=== PATIENT | female | born 1940 | race Caucasian/White ===

== ENCOUNTER 2017-11-27 07:59 | Emergency (ER) | payer MEDICARE, OTHER ==
--- NOTE | 2017-11-27 08:49 | EDM.PDOC ---
ED HPI GENERAL MEDICAL PROBLEM - General Chief Complaint: General Stated Complaint: weakness, increased falls Time Seen by Provider: 11/27/17 08:10 Source of Information: Reports: Patient History Limitations: Reports: No Limitations - History of Present Illness INITIAL COMMENTS - FREE TEXT/NARRATIVE: Patient is a 77-year-old who lives in [facility] brought in by ambulance with chief complaint of weakness patient states she has fallen 4 times yesterday. Duration: Hour(s):, Getting Worse Location: Reports: Generalized Associated Symptoms: Reports: Weakness, Other (Patient was recently treated for strep throat) - Related Data Allergies Allergy/AdvReac Type Severity Reaction Status Date / Time Penicillins Allergy Swelling Verified 11/27/17 08:19 Sulfa (Sulfonamide Allergy Redness Verified 11/27/17 08:19 Antibiotics) tramadol Allergy Delusions Verified 11/27/17 08:19 Home Meds: Home Meds Aspirin [Lo-Dose Aspirin EC] 81 mg PO DAILY 11/27/17 [History] Calcium Carbonate [Calcium] 500 mg PO DAILY 11/27/17 [History] Citalopram [Citalopram HBr] 20 mg PO DAILY 11/27/17 [History] Clopidogrel [Plavix] 75 mg PO DAILY 11/27/17 [History] Cyclobenzaprine [Flexeril] 10 mg PO BEDTIME PRN 11/27/17 [History] Donepezil [Aricept] 5 mg PO BEDTIME 11/27/17 [History] Esomeprazole Magnesium 20 mg PO DAILY 11/27/17 [History] Furosemide 20 mg PO DAILY 11/27/17 [History] Levothyroxine 125 mcg PO DAILY 11/27/17 [History] Lisinopril 20 mg PO BID 11/27/17 [History] Mercaptopurine 50 mg PO DAILY 11/27/17 [History] Metoprolol Succinate [Toprol Xl] 25 mg PO DAILY 11/27/17 [History] NIFEdipine [Procardia Xl] 60 mg PO DAILY 11/27/17 [History] Potassium Chloride 2 cap PO TID 11/27/17 [History] Solifenacin [Vesicare] 10 mg PO DAILY 11/27/17 [History] Triamcinolone Acetonide [Triamcinolone Acetonide 0.1% Crm] 1 applic TOP BID PRN 11/27/17 [History] Vitamin D 500 mg PO DAILY 11/27/17 [History] atorvaSTATin [Lipitor] 20 mg PO QPM 11/27/17 [History] ED ROS GENERAL - Review of Systems Review Of Systems: See Below Constitutional: Reports: Weakness HEENT: Reports: Throat Pain Respiratory: Reports: No Symptoms Cardiovascular: Reports: No Symptoms Endocrine: Reports: No Symptoms GI/Abdominal: Reports: No Symptoms : Reports: No Symptoms Musculoskeletal: Reports: No Symptoms Skin: Reports: No Symptoms Neurological: Reports: No Symptoms Psychiatric: Reports: No Symptoms ED EXAM, GENERAL - Physical Exam Exam: See Below Exam Limited By: No Limitations General Appearance: Alert, WD/WN, No Apparent Distress Eye Exam: Bilateral Eye: EOMI, PERRL Ears: Normal External Exam, Normal Canal, Hearing Grossly Normal, Normal TMs Ear Exam: Bilateral Ear: Auricle Normal, Canal Normal, TM normal Nose: Normal Inspection, Normal Mucosa, No Blood Throat/Mouth: Normal Inspection, Normal Lips, Normal Teeth, Normal Gums, Normal Oropharynx, Normal Voice, No Airway Compromise Head: Atraumatic, Normocephalic Neck: Normal Inspection, Supple, Non-Tender, Full Range of Motion Respiratory/Chest: No Respiratory Distress, Lungs Clear, Normal Breath Sounds, No Accessory Muscle Use, Chest Non-Tender Cardiovascular: Normal Peripheral Pulses, Regular Rate, Rhythm, No Edema, No Gallop, No JVD, No Murmur, No Rub GI/Abdominal: Normal Bowel Sounds, Soft, Non-Tender, No Organomegaly, No Distention, No Abnormal Bruit, No Mass (Female) Exam: Deferred Rectal (Female) Exam: Deferred Back Exam: Normal Inspection, Full Range of Motion, NT Extremities: Normal Inspection, Normal Range of Motion, Non-Tender, Normal Capillary Refill, No Pedal Edema Neurological: Alert, Oriented, CN II-XII Intact, Normal Cognition, Normal Gait, Normal Reflexes, No Motor/Sensory Deficits Psychiatric: Normal Affect, Normal Mood Skin Exam: Warm, Dry, Intact, Normal Color, No Rash Lymphatic: No Adenopathy Course - Vital Signs Last Recorded V/S: Last Vital Signs Temp 97.6 F 11/27/17 08:15 Pulse 51 L 11/27/17 08:15 Resp 16 11/27/17 08:15 BP 127/46 L 11/27/17 08:15 Pulse Ox 97 11/27/17 08:15 - Orders/Labs/Meds Orders: Active Orders 24 hr Category Date Time Status EKG Documentation Completion [RC] ASDIRECTED Care 11/27/17 08:46 Active CXR [Chest 2V] [CR] Stat Exams 11/27/17 08:45 Taken Sodium Chloride 0.9% [Normal Saline] 1,000 ml Med 11/27/17 09:49 Active IV ASDIRECTED Medication Orders Sodium Chloride (Normal Saline) 1,000 mls @ 250 mls/hr IV ASDIRECTED RACHEL Last Admin: 11/27/17 09:53 Dose: 250 mls/hr Labs: Laboratory Tests 11/27/17 11/27/17 11/27/17 Range/Units 09:00 09:00 09:00 WBC 6.9 (4.0-10.2) K/uL RBC 3.31 L (3.77-5.09) M/uL Hgb 11.1 L (11.7-15.5) g/dL Hct 32.3 L (34.0-46.0) % MCV 97.6 (84.0-98.0) fL MCH 33.5 H (28.2-33.3) pg MCHC 34.4 (31.7-36.0) g/dL RDW 14.6 H (11.2-14.1) % Plt Count 239 (150-350) K/uL Neut % (Auto) 69.6 (45.0-80.0) % Lymph % (Auto) 14.8 (10.0-50.0) % [place] % (Auto) 10.7 (2.0-14.0) % Eos % (Auto) 3.9 (0.0-5.0) % Baso % (Auto) 1.0 (0.0-2.0) % Neut # (Auto) 4.79 (1.40-7.00) K/uL Lymph # (Auto) 1.02 (0.50-3.50) K/uL [place] # (Auto) 0.74 (0.00-1.00) K/uL Eos # (Auto) 0.27 (0.00-0.50) K/uL Baso # (Auto) 0.07 (0.00-0.20) K/uL Sodium 140 (136-145) mmol/L Potassium 5.1 (3.5-5.1) mmol/L Chloride 106 (98-107) mmol/L Carbon Dioxide 24.3 (21.0-32.0) mmol/L BUN 38 H (7-18) mg/dL Creatinine 1.75 H (0.51-1.17) mg/dL Est Cr Clr Drug Dosing 18.72 mL/min Estimated GFR (MDRD) 28 mL/min Glucose 159 H (74-106) mg/dL Calcium 9.6 (8.5-10.1) mg/dL Troponin I 0.000 (0.000-0.056) ng/mL Meds: Medications Generic Name Dose Route Start Last Admin Trade Name Freq PRN Reason Stop Dose Admin Sodium Chloride 1,000 mls @ 250 mls/hr 11/27/17 09:49 11/27/17 09:53 Normal Saline IV 250 mls/hr ASDIRECTED RACHEL Administration Discontinued Medications Generic Name Dose Route Start Last Admin Trade Name Freq PRN Reason Stop Dose Admin Aspirin 324 mg 11/27/17 12:36 11/27/17 12:38 Aspirin PO 11/27/17 12:37 324 mg ONETIME ONE Administration Departure - Departure Time of Disposition: 13:14 Disposition: Home, Self-Care 01 Condition: Good Clinical Impression: Dehydration, Weakness - Discharge Information Forms: ED Department Discharge Care Plan Goals: Discharge home after fluids given IV - My Orders Last 24 Hours: My Active Orders 11/27/17 08:45 CXR [Chest 2V] [CR] Stat 11/27/17 08:46 EKG Documentation Completion [RC] ASDIRECTED 11/27/17 09:49 Sodium Chloride 0.9% [Normal Saline] 1,000 ml IV ASDIRECTED - Assessment/Plan Last 24 Hours: My Active Orders 11/27/17 08:45 CXR [Chest 2V] [CR] Stat 11/27/17 08:46 EKG Documentation Completion [RC] ASDIRECTED 11/27/17 09:49 Sodium Chloride 0.9% [Normal Saline] 1,000 ml IV ASDIRECTED
[2017-11-27] MEDS ORDERED: Sodium Chloride 0.9% 1,000 ML IV SCH (09:49)
[2017-11-27] MEDS ORDERED: Aspirin 81 MG Tab.Chew PO ONE (12:36)
== END 2017-11-27 14:30 | disposition home or self-care (01) ==
LOC: LL.ED 07:59
DX: E86.0 Dehydration (principal); R53.1 Weakness; Z88.0 Allergy status to penicillin; Z88.2 Allergy status to sulfonamides; Z88.6 Allergy status to analgesic agent; Z79.82 Long term (current) use of aspirin; Z79.899 Other long term (current) drug therapy
CPT/HCPCS: 36415; 71046; 80048; 84484; 85025; 87804; 93005; 96360; 96361; 99285; A9270; J7030; 99284

== ENCOUNTER 2017-11-28 15:07 | Inpatient (IN) | payer MEDICARE, OTHER ==
[2017-11-28] MEDS ORDERED: Sodium Chloride 0.9% 10 ML Syringe FLUSH PRN (15:11)
--- NOTE | 2017-11-28 16:00 | EDM.PDOC ---
ED HPI GENERAL MEDICAL PROBLEM - General Chief Complaint: General Stated Complaint: leg weakness Time Seen by Provider: 11/28/17 15:15 Source of Information: Reports: Patient History Limitations: Reports: No Limitations - History of Present Illness INITIAL COMMENTS - FREE TEXT/NARRATIVE: Patient is a 77-year-old who is seen today with chief complaint of generalized weakness states that she couldn't get up from bed today denies falling Onset: Gradual Duration: Hour(s): Location: Reports: Lower Extremity, Left, Lower Extremity, Right, Generalized ( Weakness) Quality: Reports: Ache Severity: Moderate Improves with: Reports: None Worsens with: Reports: Other (Ambulation) Context: Reports: Activity Associated Symptoms: Reports: Weakness - Related Data Allergies Allergy/AdvReac Type Severity Reaction Status Date / Time Penicillins Allergy Swelling Verified 11/28/17 15:39 Sulfa (Sulfonamide Allergy Redness Verified 11/28/17 15:39 Antibiotics) tramadol Allergy Delusions Verified 11/28/17 15:39 Home Meds: Home Meds Aspirin [Lo-Dose Aspirin EC] 81 mg PO DAILY 11/27/17 [History] Calcium Carbonate [Calcium] 500 mg PO DAILY 11/27/17 [History] Citalopram [Citalopram HBr] 20 mg PO DAILY 11/27/17 [History] Clopidogrel [Plavix] 75 mg PO DAILY 11/27/17 [History] Cyclobenzaprine [Flexeril] 10 mg PO BEDTIME PRN 11/27/17 [History] Donepezil [Aricept] 5 mg PO BEDTIME 11/27/17 [History] Esomeprazole Magnesium 20 mg PO DAILY 11/27/17 [History] Furosemide 20 mg PO DAILY 11/27/17 [History] Levothyroxine 125 mcg PO DAILY 11/27/17 [History] Lisinopril 20 mg PO BID 11/27/17 [History] Mercaptopurine 50 mg PO DAILY 11/27/17 [History] Metoprolol Succinate [Toprol Xl] 25 mg PO DAILY 11/27/17 [History] NIFEdipine [Procardia Xl] 60 mg PO DAILY 11/27/17 [History] Potassium Chloride 2 cap PO TID 11/27/17 [History] Solifenacin [Vesicare] 10 mg PO DAILY 11/27/17 [History] Triamcinolone Acetonide [Triamcinolone Acetonide 0.1% Crm] 1 applic TOP BID PRN 11/27/17 [History] Vitamin D 500 mg PO DAILY 11/27/17 [History] atorvaSTATin [Lipitor] 20 mg PO QPM 11/27/17 [History] Past Medical History HEENT History: Reports: Allergic Rhinitis, Hard of Hearing, Impaired Vision Cardiovascular History: Reports: CAD, High Cholesterol, Hypertension Respiratory History: Reports: Asthma Gastrointestinal History: Reports: Colon Polyp, Diverticulosis, Hepatitis, PUD Genitourinary History: Reports: Urinary Incontinence, Other (See Below) Other Genitourinary History: stress incontinence Musculoskeletal History: Reports: Back Pain, Chronic, Other (See Below) Other Musculoskeletal History: osteopenia, 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 Degenerative disk disease Neurological History: Reports: Neuropathy, Diabetic, Seizure, TIA, Other (See Below) Other Neuro History: mild cognitive impairment. auditory seizure Psychiatric History: Reports: Depression Endocrine/Metabolic History: Reports: Diabetes, Type II, Hypothyroidism Dermatologic History: Reports: Psoriasis, Other (See Below) Other Dermatologic History: inflammed seborrheic keratosis. actinic keratosis - Past Surgical History HEENT Surgical History: Reports: Cataract Surgery Cardiovascular Surgical History: Reports: Coronary Artery Bypass, Coronary Artery Stent Social & Family History - Tobacco Use Smoking Status *Q: Unknown Ever Smoked ED ROS GENERAL - Review of Systems Review Of Systems: See Below Constitutional: Reports: No Symptoms HEENT: Reports: No Symptoms Respiratory: Reports: No Symptoms Cardiovascular: Reports: No Symptoms Endocrine: Reports: No Symptoms GI/Abdominal: Reports: No Symptoms : Reports: No Symptoms Musculoskeletal: Reports: No Symptoms Skin: Reports: No Symptoms Neurological: Reports: Weakness Psychiatric: Reports: No Symptoms Immunologic: Reports: No Symptoms ED EXAM, GENERAL - Physical Exam Exam: See Below Exam Limited By: No Limitations General Appearance: Alert, WD/WN, No Apparent Distress Ears: Normal External Exam, Normal Canal, Hearing Grossly Normal, Normal TMs Ear Exam: Bilateral Ear: Auricle Normal, Canal Normal, TM normal Nose: Normal Inspection, Normal Mucosa, No Blood Throat/Mouth: Normal Inspection, Normal Lips, Normal Teeth, Normal Gums, Normal Oropharynx, Normal Voice, No Airway Compromise Head: Atraumatic, Normocephalic Neck: Normal Inspection, Supple, Non-Tender, Full Range of Motion Respiratory/Chest: No Respiratory Distress, Lungs Clear, Normal Breath Sounds, No Accessory Muscle Use, Chest Non-Tender Cardiovascular: Normal Peripheral Pulses, Regular Rate, Rhythm, No Edema, No Gallop, No JVD, No Murmur, No Rub GI/Abdominal: Normal Bowel Sounds, Soft, Non-Tender, No Organomegaly, No Distention, No Abnormal Bruit, No Mass (Female) Exam: Normal External Exam, Normal Speculum Exam, Normal Bimanual Exam Rectal (Female) Exam: Deferred Back Exam: Decreased Range of Motion, Muscle Spasm, Other (Lower back) Extremities: Normal Inspection, Normal Range of Motion, Non-Tender, Normal Capillary Refill, No Pedal Edema Neurological: Alert, Oriented, CN II-XII Intact, Normal Cognition, Normal Gait, Normal Reflexes, No Motor/Sensory Deficits, Sensory/Motor Deficit, Other ( Peripheral neuropathy) Psychiatric: Normal Affect, Normal Mood Skin Exam: Warm, Dry, Intact, Normal Color, No Rash Lymphatic: No Adenopathy Course - Vital Signs Last Recorded V/S: Last Vital Signs Temp 98.2 F 11/28/17 15:32 Pulse 54 L 11/28/17 15:32 Resp 16 11/28/17 15:32 BP 172/55 H 11/28/17 15:32 Pulse Ox 100 11/28/17 15:32 - Orders/Labs/Meds Orders: Active Orders 24 hr Category Date Time Status CMP [COMPREHENSIVE METABOLIC PN,CMP] [CHEM] Stat Lab 11/28/17 15:17 Received TSH ULTRASENSITIVE [CHEM] Stat Lab 11/28/17 15:17 Received Sodium Chloride 0.9% [Saline Flush] Med 11/28/17 15:11 Active 10 ml FLUSH ASDIRECTED PRN Saline Lock Insert [OM.PC] Routine Oth 11/28/17 15:11 Ordered Medication Orders Sodium Chloride (Saline Flush) 10 ml FLUSH ASDIRECTED PRN PRN Reason: Keep Vein Open Labs: Laboratory Tests 11/28/17 Range/Units 15:17 WBC 6.0 (4.0-10.2) K/uL RBC 2.93 L (3.77-5.09) M/uL Hgb 9.7 L (11.7-15.5) g/dL Hct 28.3 L (34.0-46.0) % MCV 96.6 (84.0-98.0) fL MCH 33.1 (28.2-33.3) pg MCHC 34.3 (31.7-36.0) g/dL RDW 14.2 H (11.2-14.1) % Plt Count 193 (150-350) K/uL Neut % (Auto) 67.2 (45.0-80.0) % Lymph % (Auto) 16.1 (10.0-50.0) % [place] % (Auto) 11.9 (2.0-14.0) % Eos % (Auto) 4.0 (0.0-5.0) % Baso % (Auto) 0.8 (0.0-2.0) % Neut # (Auto) 3.99 (1.40-7.00) K/uL Lymph # (Auto) 0.96 (0.50-3.50) K/uL [place] # (Auto) 0.71 (0.00-1.00) K/uL Eos # (Auto) 0.24 (0.00-0.50) K/uL Baso # (Auto) 0.05 (0.00-0.20) K/uL Meds: Medications Generic Name Dose Route Start Last Admin Trade Name Freq PRN Reason Stop Dose Admin Sodium Chloride 10 ml 11/28/17 15:11 Saline Flush FLUSH ASDIRECTED PRN Keep Vein Open Departure - Departure Time of Disposition: 16:04 Disposition: Admitted As Inpatient 64 Condition: Fair Clinical Impression: Dehydration, Weakness - Discharge Information - Problem List & Annotations (1) Dehydration SNOMED Code(s): 97431686 Code(s): E86.0 - DEHYDRATION Status: Acute Annotation/Comment:: Patient denies any emesis or diarrhea has not been drinking well in the past 24 hours (2) Weakness SNOMED Code(s): 29671292 Code(s): R53.1 - WEAKNESS Status: Acute Annotation/Comment:: Patient complains of generalized weakness difficult to get up from bed she has not fallen today was brought in because of generalized weakness - Problem List Review Problem List Initiated/Reviewed/Updated: Yes - My Orders Last 24 Hours: My Active Orders 11/28/17 15:11 Sodium Chloride 0.9% [Saline Flush] 10 ml FLUSH ASDIRECTED PRN Saline Lock Insert [OM.PC] Routine 11/28/17 15:17 CMP [COMPREHENSIVE METABOLIC PN,CMP] [CHEM] Stat TSH ULTRASENSITIVE [CHEM] Stat - Assessment/Plan Last 24 Hours: My Active Orders 11/28/17 15:11 Sodium Chloride 0.9% [Saline Flush] 10 ml FLUSH ASDIRECTED PRN Saline Lock Insert [OM.PC] Routine 11/28/17 15:17 CMP [COMPREHENSIVE METABOLIC PN,CMP] [CHEM] Stat TSH ULTRASENSITIVE [CHEM] Stat Plan: Will admit patient for hydration and physical therapy also importance as the patient has not been taking her thyroid medication for while.
[2017-11-28] MEDS: Dextrose 5%-0.9% NaCl with KCl 1,000 ML IV SCH ×2 (16:01→23:40)
[2017-11-29] MEDS ORDERED: Acetaminophen 500 MG Tab PO PRN (00:24)
[2017-11-29] MEDS ORDERED: Cyclobenzaprine 10 MG Tab PO PRN (00:28)
[2017-11-29] MEDS: Dextrose 5%-0.9% NaCl with KCl 1,000 ML IV SCH ×3 (07:27→22:59)
[2017-11-29] MEDS ORDERED: ESOMEPRAZOLE MAGNESIUM 20 MG PO SCH (08:00)
[2017-11-29] MEDS ORDERED: VITAMIN D PO SCH (08:00)
[2017-11-29] MEDS ORDERED: MERCAPTOPURINE 50 MG PO SCH (08:00)
[2017-11-29] MEDS: Metoprolol Succinate 25 MG Tab.ER PO SCH (08:43)
[2017-11-29] MEDS: Enoxaparin 30 MG/0.3 ML Syringe SUBCUT SCH (08:43)
[2017-11-29] MEDS: Potassium Chloride 10 MEQ Tab.ER PO SCH ×3 (08:43→17:28)
[2017-11-29] MEDS: Clopidogrel 75 MG Tab PO SCH (08:44)
[2017-11-29] MEDS: Trospium 20 MG Tab PO SCH (08:44)
[2017-11-29] MEDS: Citalopram 20 MG Tab PO SCH (08:45)
[2017-11-29] MEDS: Lisinopril 20 MG Tab PO SCH ×2 (08:45→17:29)
[2017-11-29] MEDS: Levothyroxine 100 MCG Tab PO SCH (08:45)
[2017-11-29] MEDS: Furosemide 20 MG Tab PO SCH (08:45)
[2017-11-29] MEDS: Aspirin 81 MG Tab.EC PO SCH (08:45)
[2017-11-29] MEDS: Levothyroxine 25 MCG Tab PO SCH (08:45)
--- NOTE | 2017-11-29 10:55 | PCM.PN ---
- General Info Date of Service: 11/29/17 Admission Dx/Problem (Free Text): Patient 77-year-old who was admitted with generalized weakness unable to walk day prior to admission patient had fallen 4 times was seen in the ER hydrated and sent home this morning had continuous weakness admitted for physical therapy evaluation Functional Status: Reports: Tolerating Diet, Ambulating - Review of Systems General: Reports: Weakness (Improving) HEENT: Reports: No Symptoms Pulmonary: Reports: No Symptoms Cardiovascular: Reports: No Symptoms Gastrointestinal: Reports: Other (Stool soft brown and formed) Genitourinary: Reports: Incontinence Musculoskeletal: Reports: No Symptoms Skin: Reports: No Symptoms Neurological: Reports: No Symptoms Psychiatric: Reports: No Symptoms - Patient Data Vitals - Most Recent: Last Vital Signs Temp 98.3 F 11/29/17 08:00 Pulse 55 L 11/29/17 08:43 Resp 16 11/29/17 08:00 BP 147/58 H 11/29/17 08:45 Pulse Ox 97 11/29/17 08:00 Weight - Most Recent: 198 lb 8 oz I&O - Last 24 Hours: Intake & Output 11/28/17 11/29/17 11/29/17 22:59 06:59 14:59 Intake Total 250 1945 540 Balance 250 1945 540 Lab Results Last 24 Hours: Laboratory Results - last 24 hr 11/29/17 11/29/17 Range/Units 06:50 06:50 WBC 5.2 (4.0-10.2) K/uL RBC 2.80 L (3.77-5.09) M/uL Hgb 9.3 L (11.7-15.5) g/dL Hct 27.2 L (34.0-46.0) % MCV 97.1 (84.0-98.0) fL MCH 33.2 (28.2-33.3) pg MCHC 34.2 (31.7-36.0) g/dL RDW 14.2 H (11.2-14.1) % Plt Count 182 (150-350) K/uL Neut % (Auto) 61.3 (45.0-80.0) % Lymph % (Auto) 18.1 (10.0-50.0) % [place] % (Auto) 14.6 H (2.0-14.0) % Eos % (Auto) 5.0 (0.0-5.0) % Baso % (Auto) 1.0 (0.0-2.0) % Neut # (Auto) 3.16 (1.40-7.00) K/uL Lymph # (Auto) 0.93 (0.50-3.50) K/uL [place] # (Auto) 0.75 (0.00-1.00) K/uL Eos # (Auto) 0.26 (0.00-0.50) K/uL Baso # (Auto) 0.05 (0.00-0.20) K/uL Sodium 142 (136-145) mmol/L Potassium 4.6 (3.5-5.1) mmol/L Chloride 111 H (98-107) mmol/L Carbon Dioxide 24.1 (21.0-32.0) mmol/L BUN 31 H (7-18) mg/dL Creatinine 1.37 H (0.51-1.17) mg/dL Est Cr Clr Drug Dosing 23.92 mL/min Estimated GFR (MDRD) 37 mL/min Glucose 218 H (74-106) mg/dL Calcium 8.6 (8.5-10.1) mg/dL Med Orders - Current: Current Medications Acetaminophen (Tylenol Extra Strength) 500 mg PO Q4H PRN PRN Reason: analgesia/fever Aspirin (Halfprin) 81 mg PO DAILY [facility] Last Admin: 11/29/17 08:45 Dose: 81 mg Atorvastatin Calcium (Lipitor) 20 mg PO QPM [facility] Citalopram Hydrobromide (Celexa) 20 mg PO DAILY [facility] Last Admin: 11/29/17 08:45 Dose: 20 mg Clopidogrel Bisulfate (Plavix) 75 mg PO DAILY [facility] Last Admin: 11/29/17 08:44 Dose: 75 mg Cyclobenzaprine HCl (Flexeril) 10 mg PO BEDTIME PRN PRN Reason: Muscle Spasm Donepezil HCl (Aricept) 5 mg PO BEDTIME [facility] Enoxaparin Sodium (Lovenox) 30 mg SUBCUT DAILY [facility] Last Admin: 11/29/17 08:43 Dose: 30 mg Furosemide (Lasix) 20 mg PO DAILY [facility] Last Admin: 11/29/17 08:45 Dose: 20 mg Potassium Chloride/Dextrose/Sod Cl (D5 Ns With 20 Meq Kcl) 1,000 mls @ 150 mls/ hr IV ASDIRECTED [facility] Last Admin: 11/29/17 07:27 Dose: 150 mls/hr Levothyroxine Sodium (Synthroid) 100 mcg PO DAILY [facility] Last Admin: 11/29/17 08:45 Dose: 100 mcg Levothyroxine Sodium (Levothyroxine) 25 mcg PO DAILY [facility] Last Admin: 11/29/17 08:45 Dose: 25 mcg Lisinopril (Prinivil) 20 mg PO BID [facility] Last Admin: 11/29/17 08:45 Dose: 20 mg Metoprolol Succinate (Toprol Xl) 25 mg PO DAILY [facility] Last Admin: 11/29/17 08:43 Dose: 25 mg Non-Formulary Medication (Esomeprazole Magnesium [Esomeprazole Magnesium]) 20 mg PO DAILY [facility] Non-Formulary Medication (Mercaptopurine [Mercaptopurine]) 50 mg PO DAILY [facility] Non-Formulary Medication (Vitamin D ) 500 mg PO DAILY [facility] Potassium Chloride (Klor-Con 10) 20 meq PO TID [facility] Last Admin: 11/29/17 08:43 Dose: 20 meq Sodium Chloride (Saline Flush) 10 ml FLUSH ASDIRECTED PRN PRN Reason: Keep Vein Open Trospium (Sanctura) 20 mg PO DAILY [facility] Last Admin: 11/29/17 08:44 Dose: 20 mg - Exam General: Alert, Oriented HEENT: Pupils Equal, Pupils Reactive, EOMI, Mucous Membr. Moist/[place] Neck: Supple Lungs: Clear to Auscultation, Normal Respiratory Effort Cardiovascular: Bradycardia (Metoprolol held secondary to bradycardia) GI/Abdominal Exam: Normal Bowel Sounds, Soft, Non-Tender, No Organomegaly, No Distention, No Abnormal Bruit, No Mass, Pelvis Stable (Female) Exam: Deferred Back Exam: Decreased Range of Motion Extremities: Normal Inspection, Limited Range of Motion - Problem List & Annotations (1) Dehydration SNOMED Code(s): 81757588 Code(s): E86.0 - DEHYDRATION Status: Acute Current Visit: Yes Annotation/Comment:: IV hydration doing well (2) Weakness SNOMED Code(s): 03966301 Code(s): R53.1 - WEAKNESS Status: Acute Current Visit: Yes Annotation/ Comment:: Patient seems to be stronger today will see progress and have PT OT evaluate for home discharge - Problem List Review Problem List Initiated/Reviewed/Updated: Yes - My Orders Last 24 Hours: My Active Orders 11/28/17 21:34 Code Status [Resuscitation Status] Routine 11/29/17 00:21 Vital Signs [RC] Q8HR 11/29/17 00:24 Patient Status [ADT] Routine Ambulate [RC] ASDIRECTED Bedrest Bathroom Privileges [RC] ASDIRECTED Intake and Output [RC] QSHIFT May Shower [RC] ASDIRECTED Up With Assistance [RC] ASDIRECTED Up to Chair [RC] ASDIRECTED Vital Signs [RC] Q4H Acetaminophen [Tylenol Extra Strength] 500 mg PO Q4H PRN DVT/VTE Prophylaxis Reflex [OM.PC] Routine 11/29/17 00:25 Antiembolic Devices [RC] 08,20 VTE/DVT Education [RC] DAILY 11/29/17 00:28 Cyclobenzaprine [Flexeril] 10 mg PO BEDTIME PRN 11/29/17 08:00 Aspirin [Halfprin] 81 mg PO DAILY Citalopram [Celexa] 20 mg PO DAILY Clopidogrel [Plavix] 75 mg PO DAILY Enoxaparin [Lovenox] 30 mg SUBCUT DAILY Esomeprazole Magnesium [Esomeprazole Magnesium] 20 mg PO DAILY Furosemide [Lasix] 20 mg PO DAILY Levothyroxine 25 mcg PO DAILY Levothyroxine [Synthroid] 100 mcg PO DAILY Lisinopril [Prinivil] 20 mg PO BID Mercaptopurine [Mercaptopurine] 50 mg PO DAILY Metoprolol Succinate [Toprol XL] 25 mg PO DAILY Potassium Chloride [Klor-Con 10] 20 meq PO TID Trospium [Sanctura] 20 mg PO DAILY Vitamin D 500 mg PO DAILY 11/29/17 10:41 OCCULT BLOOD DIAGNOSTIC [OP] Routine 11/29/17 10:45 OT Evaluation and Treatment [CONS] Routine PT Evaluation and Treatment [CONS] Routine 11/29/17 18:00 atorvaSTATin [Lipitor] 20 mg PO QPM 11/29/17 20:00 Donepezil [Aricept] 5 mg PO BEDTIME 11/29/17 Dinner Regular Diet [DIET] - Plan Plan:: Will keep overnight have PT OT evaluate prior to discharge
[2017-11-29] MEDS ORDERED: Omeprazole 20 MG Cap.CR PO SCH (11:15)
[2017-11-29] MEDS: Cholecalciferol (Vitamin D3) 400 Unit Tab PO SCH (12:10)
[2017-11-29] MEDS: Pantoprazole 40 MG Tab.CR PO SCH (12:10)
[2017-11-29] MEDS ORDERED: atorvaSTATin 10 MG Tab PO SCH (18:00)
[2017-11-29] MEDS ORDERED: Donepezil 5 MG Tab PO SCH (20:00)
[2017-11-30] MEDS: Dextrose 5%-0.9% NaCl with KCl 1,000 ML IV SCH (05:55)
[2017-11-30] MEDS: Cholecalciferol (Vitamin D3) 400 Unit Tab PO SCH (08:33)
[2017-11-30] MEDS: Lisinopril 20 MG Tab PO SCH (08:33)
[2017-11-30] MEDS: Citalopram 20 MG Tab PO SCH (08:34)
[2017-11-30] MEDS: Furosemide 20 MG Tab PO SCH (08:34)
[2017-11-30] MEDS: Levothyroxine 100 MCG Tab PO SCH (08:34)
[2017-11-30] MEDS: Pantoprazole 40 MG Tab.CR PO SCH (08:34)
[2017-11-30] MEDS: Metoprolol Succinate 25 MG Tab.ER PO SCH (08:35)
[2017-11-30] MEDS: Trospium 20 MG Tab PO SCH (08:35)
[2017-11-30] MEDS: Potassium Chloride 10 MEQ Tab.ER PO SCH ×2 (08:35→12:52)
[2017-11-30] MEDS: Aspirin 81 MG Tab.EC PO SCH (08:35)
[2017-11-30] MEDS: Levothyroxine 25 MCG Tab PO SCH (08:35)
[2017-11-30] MEDS: Clopidogrel 75 MG Tab PO SCH (08:36)
[2017-11-30] MEDS: Enoxaparin 30 MG/0.3 ML Syringe SUBCUT SCH (08:36)
--- NOTE | 2017-11-30 12:51 | PCM.PN ---
- General Info Date of Service: 11/30/17 Admission Dx/Problem (Free Text): Patient was admitted with generalized weakness on Wednesday acute tubular necrosis secondary to dehydration she was hydrated and this improved but as the days progressed patient hemoglobin dropped to 8.5 this could be secondary to hydration but more importantly it was it that her second and third humeral occult were positive and now the stools appeared darker and bloody at this time [facility] was called and will transfer her to hospitalist there Functional Status: Reports: New Symptoms (GI bleed) - Review of Systems General: Reports: Weakness Pulmonary: Reports: No Symptoms Cardiovascular: Reports: No Symptoms Gastrointestinal: Reports: Diarrhea, Melena Genitourinary: Reports: No Symptoms Musculoskeletal: Reports: No Symptoms Skin: Reports: No Symptoms Neurological: Reports: No Symptoms Psychiatric: Reports: No Symptoms - Patient Data Vitals - Most Recent: Last Vital Signs Temp 98.7 F 11/30/17 08:00 Pulse 64 11/30/17 08:35 Resp 16 11/30/17 08:00 BP 142/66 H 11/30/17 08:35 Pulse Ox 99 11/30/17 08:00 Weight - Most Recent: 204 lb I&O - Last 24 Hours: Intake & Output 11/29/17 11/30/17 11/30/17 22:59 06:59 14:59 Intake Total 1860 1950 120 Balance 1860 1950 120 Lab Results Last 24 Hours: Laboratory Results - last 24 hr 11/30/17 11/30/17 Range/Units 07:56 07:56 WBC 5.4 (4.0-10.2) K/uL RBC 2.52 L (3.77-5.09) M/uL Hgb 8.5 L (11.7-15.5) g/dL Hct 24.8 L* (34.0-46.0) % MCV 98.4 H (84.0-98.0) fL MCH 33.7 H (28.2-33.3) pg MCHC 34.3 (31.7-36.0) g/dL RDW 14.3 H (11.2-14.1) % Plt Count 185 (150-350) K/uL Neut % (Auto) 63.6 (45.0-80.0) % Lymph % (Auto) 18.1 (10.0-50.0) % [place] % (Auto) 12.9 (2.0-14.0) % Eos % (Auto) 4.8 (0.0-5.0) % Baso % (Auto) 0.6 (0.0-2.0) % Neut # (Auto) 3.45 (1.40-7.00) K/uL Lymph # (Auto) 0.98 (0.50-3.50) K/uL [place] # (Auto) 0.70 (0.00-1.00) K/uL Eos # (Auto) 0.26 (0.00-0.50) K/uL Baso # (Auto) 0.03 (0.00-0.20) K/uL Sodium 139 (136-145) mmol/L Potassium 5.1 (3.5-5.1) mmol/L Chloride 112 H (98-107) mmol/L Carbon Dioxide 21.1 (21.0-32.0) mmol/L BUN 22 H (7-18) mg/dL Creatinine 1.30 H (0.51-1.17) mg/dL Est Cr Clr Drug Dosing 25.20 mL/min Estimated GFR (MDRD) 40 mL/min Glucose 188 H (74-106) mg/dL Calcium 8.4 L (8.5-10.1) mg/dL Miguel Results Last 24 Hours: Microbiology 11/30/17 09:40 Stool Occult Blood (MIGUEL) - Final Stool / Feces 11/29/17 09:24 Stool Occult Blood (MIGUEL) - Final Stool / Feces NEGATIVE OCCULT BLOOD Med Orders - Current: Current Medications Acetaminophen (Tylenol Extra Strength) 500 mg PO Q4H PRN PRN Reason: analgesia/fever Aspirin (Halfprin) 81 mg PO DAILY [facility] Last Admin: 11/30/17 08:35 Dose: 81 mg Atorvastatin Calcium (Lipitor) 20 mg PO QPM [facility] Last Admin: 11/29/17 17:28 Dose: 20 mg Cholecalciferol (Vitamin D3) 800 units PO DAILY [facility] Last Admin: 11/30/17 08:33 Dose: 800 units Citalopram Hydrobromide (Celexa) 20 mg PO DAILY [facility] Last Admin: 11/30/17 08:34 Dose: 20 mg Clopidogrel Bisulfate (Plavix) 75 mg PO DAILY [facility] Last Admin: 11/30/17 08:36 Dose: 75 mg Cyclobenzaprine HCl (Flexeril) 10 mg PO BEDTIME PRN PRN Reason: Muscle Spasm Last Admin: 11/29/17 21:39 Dose: 10 mg Donepezil HCl (Aricept) 5 mg PO BEDTIME [facility] Last Admin: 11/29/17 19:21 Dose: 5 mg Enoxaparin Sodium (Lovenox) 30 mg SUBCUT DAILY [facility] Last Admin: 11/30/17 08:36 Dose: 30 mg Furosemide (Lasix) 20 mg PO DAILY [facility] Last Admin: 11/30/17 08:34 Dose: 20 mg Levothyroxine Sodium (Synthroid) 100 mcg PO DAILY [facility] Last Admin: 11/30/17 08:34 Dose: 100 mcg Levothyroxine Sodium (Levothyroxine) 25 mcg PO DAILY [facility] Last Admin: 11/30/17 08:35 Dose: 25 mcg Lisinopril (Prinivil) 20 mg PO BID [facility] Last Admin: 11/30/17 08:33 Dose: 20 mg Metoprolol Succinate (Toprol Xl) 25 mg PO DAILY [facility] Last Admin: 11/30/17 08:35 Dose: 25 mg Non-Formulary Medication (Mercaptopurine [Mercaptopurine]) 50 mg PO DAILY [facility] Pantoprazole Sodium (Protonix) 40 mg PO DAILY [facility] Last Admin: 11/30/17 08:34 Dose: 40 mg Potassium Chloride (Klor-Con 10) 20 meq PO TID [facility] Last Admin: 11/30/17 08:35 Dose: 20 meq Sodium Chloride (Saline Flush) 10 ml FLUSH ASDIRECTED PRN PRN Reason: Keep Vein Open Trospium (Sanctura) 20 mg PO DAILY [facility] Last Admin: 11/30/17 08:35 Dose: 20 mg Discontinued Medications Potassium Chloride/Dextrose/Sod Cl (D5 Ns With 20 Meq Kcl) 1,000 mls @ 150 mls/ hr IV ASDIRECTED [facility] Last Admin: 11/30/17 05:55 Dose: 150 mls/hr Non-Formulary Medication (Esomeprazole Magnesium [Esomeprazole Magnesium]) 20 mg PO DAILY [facility] Last Admin: 11/29/17 11:49 Dose: Not Given Non-Formulary Medication (Vitamin D ) 500 mg PO DAILY [facility] Last Admin: 11/29/17 11:49 Dose: Not Given Omeprazole (Omeprazole) 20 mg PO DAILY [facility] Last Admin: 11/29/17 11:49 Dose: Not Given - Exam Quality Assessment: DVT Prophylaxis (Will be stopped at this time secondary to GI bleed) General: Alert, Oriented, Other (Feeling a little bit stronger) HEENT: Pupils Equal, Pupils Reactive, EOMI, Mucous Membr. Moist/[place] Neck: Supple Lungs: Clear to Auscultation, Normal Respiratory Effort GI/Abdominal Exam: No Mass, Abnormal Bowel Sounds (Hyperactive) (Female) Exam: Normal External Exam, Normal Speculum Exam, Normal Bimanual Exam Back Exam: Normal Inspection Extremities: Normal Inspection, Pedal Edema (` +1) Skin: Warm, Dry, Intact Neurological: No New Focal Deficit Psy/Mental Status: Alert, Normal Affect, Normal Mood - Problem List & Annotations (1) Dehydration SNOMED Code(s): 42335011 Code(s): E86.0 - DEHYDRATION Status: Acute Current Visit: Yes Annotation/Comment:: IV fluids stopped patient doing well renal functions improving (2) Weakness SNOMED Code(s): 11571771 Code(s): R53.1 - WEAKNESS Status: Acute Current Visit: Yes Annotation/ Comment:: Patient seems to be stronger today will see progress and have PT OT evaluate for home discharge (3) GI bleed SNOMED Code(s): 05065062 Code(s): K92.2 - GASTROINTESTINAL HEMORRHAGE, UNSPECIFIED Status: Acute Current Visit: Yes Annotation/Comment:: At this time hemoglobin has dropped from 9.7-8.5 first Hemoccult was negative but the second and the third were positive now stool is black and foul-smelling spoke with Dr. Bergeron will transfer to [facility] for workup. (4) Acute tubular necrosis SNOMED Code(s): 82093990 Code(s): N17.0 - ACUTE KIDNEY FAILURE WITH TUBULAR NECROSIS Status: Acute Current Visit: Yes Annotation/Comment:: Acute tubular necrosis secondary to dehydration patient hydrated renal functions improved - Problem List Review Problem List Initiated/Reviewed/Updated: Yes - My Orders Last 24 Hours: My Active Orders 11/29/17 18:00 atorvaSTATin [Lipitor] 20 mg PO QPM 11/29/17 20:00 Donepezil [Aricept] 5 mg PO BEDTIME 11/29/17 Dinner Regular Diet [DIET] - Plan Plan:: Patient will be transferred to [facility] Dr. Bettencourt service for GI workup of bleeding both anticoagulation stopped at this time patient placed on nothing by mouth
--- NOTE | 2017-11-30 13:06 | PCM.DCSUM1 ---
Discharge Summary - Hospital Course Free Text/Narrative:: Patient seen today hemoglobin dropped to 8.5 second and third Hemoccult- positive stool is black foul-smelling and appeared bloody Brief History: Patient admitted to hospital secondary to generalized weakness hydrated improving renal functions general weakness improved but now hemoglobin dropped and it appears that she is rectally bleeding so patient will be transferred for GI workup - Discharge Data Discharge Date: 11/30/17 Discharge Disposition: DC/Tfer to Acute Hospital 02 Condition: Fair - Discharge Diagnosis/Problem(s) (1) Dehydration SNOMED Code(s): 28510331 ICD Code: E86.0 - DEHYDRATION Status: Acute Current Visit: Yes Problem Details: IV fluids stopped patient doing well renal functions improving (2) Weakness SNOMED Code(s): 65402876 ICD Code: R53.1 - WEAKNESS Status: Acute Current Visit: Yes Problem Details: Patient seems to be stronger today will see progress and have PT OT evaluate for home discharge (3) GI bleed SNOMED Code(s): 27491170 ICD Code: K92.2 - GASTROINTESTINAL HEMORRHAGE, UNSPECIFIED Status: Acute Current Visit: Yes Problem Details: At this time hemoglobin has dropped from 9.7-8.5 first Hemoccult was negative but the second and the third were positive now stool is black and foul-smelling spoke with Dr. Bergeron will transfer to [facility] for workup. (4) Acute tubular necrosis SNOMED Code(s): 20885160 ICD Code: N17.0 - ACUTE KIDNEY FAILURE WITH TUBULAR NECROSIS Status: Acute Current Visit: Yes Problem Details: Acute tubular necrosis secondary to dehydration patient hydrated renal functions improved - Patient Summary/Data Consults: Consultations 11/29/17 10:45 OT Evaluation and Treatment [CONS] Routine PT Evaluation and Treatment [CONS] Routine - Discharge Plan Home Medications: Home Meds Aspirin [Lo-Dose Aspirin EC] 81 mg PO DAILY 11/27/17 [History] Calcium Carbonate [Calcium] 500 mg PO DAILY 11/27/17 [History] Citalopram [Citalopram HBr] 20 mg PO DAILY 11/27/17 [History] Clopidogrel [Plavix] 75 mg PO DAILY 11/27/17 [History] Cyclobenzaprine [Flexeril] 10 mg PO BEDTIME PRN 11/27/17 [History] Donepezil [Aricept] 5 mg PO BEDTIME 11/27/17 [History] Esomeprazole Magnesium 20 mg PO DAILY 11/27/17 [History] Furosemide 20 mg PO DAILY 11/27/17 [History] Levothyroxine 125 mcg PO DAILY 11/27/17 [History] Lisinopril 20 mg PO BID 11/27/17 [History] Mercaptopurine 50 mg PO DAILY 11/27/17 [History] Metoprolol Succinate [Toprol Xl] 25 mg PO DAILY 11/27/17 [History] NIFEdipine [Procardia Xl] 60 mg PO DAILY 11/27/17 [History] Potassium Chloride 2 cap PO TID 11/27/17 [History] Solifenacin [Vesicare] 10 mg PO DAILY 11/27/17 [History] Triamcinolone Acetonide [Triamcinolone Acetonide 0.1% Crm] 1 applic TOP BID PRN 11/27/17 [History] Vitamin D 500 mg PO DAILY 11/27/17 [History] atorvaSTATin [Lipitor] 20 mg PO QPM 11/27/17 [History] Patient Handouts: Weakness, [id number] Forms: ED Department Discharge Referrals: PCP,None [Primary Care Provider] - - Discharge Summary/Plan Comment DC Time >30 min.: No Discharge Summary/Plan Comment: Patient seen today noted hemoglobin dropped Hemoccult done positive at this time patient [facility] be [facility] - Patient Data Vitals - Most Recent: Last Vital Signs Temp 98.7 F 11/30/17 08:00 Pulse 64 11/30/17 08:35 Resp 16 11/30/17 08:00 BP 142/66 H 11/30/17 08:35 Pulse Ox 99 11/30/17 08:00 Weight - Most Recent: 204 lb I&O - Last 24 hours: Intake & Output 11/29/17 11/30/17 11/30/17 22:59 06:59 14:59 Intake Total 1860 1950 120 Balance 1860 1950 120 Lab Results - Last 24 hrs: Laboratory Results - last 24 hr 11/30/17 11/30/17 Range/Units 07:56 07:56 WBC 5.4 (4.0-10.2) K/uL RBC 2.52 L (3.77-5.09) M/uL Hgb 8.5 L (11.7-15.5) g/dL Hct 24.8 L* (34.0-46.0) % MCV 98.4 H (84.0-98.0) fL MCH 33.7 H (28.2-33.3) pg MCHC 34.3 (31.7-36.0) g/dL RDW 14.3 H (11.2-14.1) % Plt Count 185 (150-350) K/uL Neut % (Auto) 63.6 (45.0-80.0) % Lymph % (Auto) 18.1 (10.0-50.0) % [place] % (Auto) 12.9 (2.0-14.0) % Eos % (Auto) 4.8 (0.0-5.0) % Baso % (Auto) 0.6 (0.0-2.0) % Neut # (Auto) 3.45 (1.40-7.00) K/uL Lymph # (Auto) 0.98 (0.50-3.50) K/uL [place] # (Auto) 0.70 (0.00-1.00) K/uL Eos # (Auto) 0.26 (0.00-0.50) K/uL Baso # (Auto) 0.03 (0.00-0.20) K/uL Sodium 139 (136-145) mmol/L Potassium 5.1 (3.5-5.1) mmol/L Chloride 112 H (98-107) mmol/L Carbon Dioxide 21.1 (21.0-32.0) mmol/L BUN 22 H (7-18) mg/dL Creatinine 1.30 H (0.51-1.17) mg/dL Est Cr Clr Drug Dosing 25.20 mL/min Estimated GFR (MDRD) 40 mL/min Glucose 188 H (74-106) mg/dL Calcium 8.4 L (8.5-10.1) mg/dL ANAM[facility]IA Results - Last 24 hrs: Microbiology 11/30/17 09:40 Stool Occult Blood (ANAMARIA) - Final Stool / Feces 11/29/17 09:24 Stool Occult Blood (ANAMARIA) - Final Stool / Feces NEGATIVE OCCULT BLOOD Med Orders - Current: Current Medications Acetaminophen (Tylenol Extra Strength) 500 mg PO Q4H PRN PRN Reason: analgesia/fever Aspirin (Halfprin) 81 mg PO DAILY [facility] Last Admin: 11/30/17 08:35 Dose: 81 mg Atorvastatin Calcium (Lipitor) 20 mg PO QPM [facility] Last Admin: 11/29/17 17:28 Dose: 20 mg Cholecalciferol (Vitamin D3) 800 units PO DAILY [facility] Last Admin: 11/30/17 08:33 Dose: 800 units Citalopram Hydrobromide (Celexa) 20 mg PO DAILY [facility] Last Admin: 11/30/17 08:34 Dose: 20 mg Cyclobenzaprine HCl (Flexeril) 10 mg PO BEDTIME PRN PRN Reason: Muscle Spasm Last Admin: 11/29/17 21:39 Dose: 10 mg Donepezil HCl (Aricept) 5 mg PO BEDTIME [facility] Last Admin: 11/29/17 19:21 Dose: 5 mg Furosemide (Lasix) 20 mg PO DAILY [facility] Last Admin: 11/30/17 08:34 Dose: 20 mg Levothyroxine Sodium (Synthroid) 100 mcg PO DAILY [facility] Last Admin: 11/30/17 08:34 Dose: 100 mcg Levothyroxine Sodium (Levothyroxine) 25 mcg PO DAILY [facility] Last Admin: 11/30/17 08:35 Dose: 25 mcg Lisinopril (Prinivil) 20 mg PO BID [facility] Last Admin: 11/30/17 08:33 Dose: 20 mg Metoprolol Succinate (Toprol Xl) 25 mg PO DAILY [facility] Last Admin: 11/30/17 08:35 Dose: 25 mg Non-Formulary Medication (Mercaptopurine [Mercaptopurine]) 50 mg PO DAILY [facility] Pantoprazole Sodium (Protonix) 40 mg PO DAILY [facility] Last Admin: 11/30/17 08:34 Dose: 40 mg Potassium Chloride (Klor-Con 10) 20 meq PO TID [facility] Last Admin: 11/30/17 12:52 Dose: Not Given Sodium Chloride (Saline Flush) 10 ml FLUSH ASDIRECTED PRN PRN Reason: Keep Vein Open Trospium (Sanctura) 20 mg PO DAILY [facility] Last Admin: 11/30/17 08:35 Dose: 20 mg Discontinued Medications Clopidogrel Bisulfate (Plavix) 75 mg PO DAILY [facility] Last Admin: 11/30/17 08:36 Dose: 75 mg Enoxaparin Sodium (Lovenox) 30 mg SUBCUT DAILY [facility] Last Admin: 11/30/17 08:36 Dose: 30 mg Potassium Chloride/Dextrose/Sod Cl (D5 Ns With 20 Meq Kcl) 1,000 mls @ 150 mls/ hr IV ASDIRECTED [facility] Last Admin: 11/30/17 05:55 Dose: 150 mls/hr Non-Formulary Medication (Esomeprazole Magnesium [Esomeprazole Magnesium]) 20 mg PO DAILY [facility] Last Admin: 11/29/17 11:49 Dose: Not Given Non-Formulary Medication (Vitamin D ) 500 mg PO DAILY [facility] Last Admin: 11/29/17 11:49 Dose: Not Given Omeprazole (Omeprazole) 20 mg PO DAILY [facility] Last Admin: 11/29/17 11:49 Dose: Not Given - Exam General: Reports: Alert, Oriented HEENT: Reports: Pupils Equal, Pupils Reactive, EOMI, Mucous Membr. Moist/[place] Neck: Reports: Supple Lungs: Reports: Clear to Auscultation, Normal Respiratory Effort Cardiovascular: Reports: Regular Rate, Regular Rhythm GI/Abdominal Exam: Normal Bowel Sounds, Soft (Female) Exam: Deferred Rectal (Female) Exam: Black Stool Back Exam: Reports: Normal Inspection Extremities: Normal Inspection, Normal Range of Motion, Non-Tender, No Pedal Edema, Normal Capillary Refill Skin: Reports: Warm, Dry, Intact Neurological: Reports: No New Focal Deficit Psy/Mental Status: Reports: Alert, Normal Affect, Normal Mood *Q Meaningful Use (DIS) - VTE *Q VTE Criteria *Q: - Stroke *Q Stroke Criteria *Q: - AMI *Q AMI Criteria *Q:
== END 2017-11-30 14:41 | DRG 947 ==
LOC: LL.ED 15:07 → LL.MS 16:39
PROVIDERS: ADMIT Family Medicine; ATTEND Family Medicine
DX: R53.1 Weakness (principal); N17.0 Acute kidney failure with tubular necrosis; I25.810 Atherosclerosis of coronary artery bypass graft(s) without angina pectoris; K92.2 Gastrointestinal hemorrhage, unspecified; E86.0 Dehydration; I10 Essential (primary) hypertension; Z95.5 Presence of coronary angioplasty implant and graft; E78.00 Pure hypercholesterolemia, unspecified; J45.909 Unspecified asthma, uncomplicated; N39.3 Stress incontinence (female) (male); G89.29 Other chronic pain; M54.9 Dorsalgia, unspecified; M85.80 Other specified disorders of bone density and structure, unspecified site; M50.30 Other cervical disc degeneration, unspecified cervical region; D32.9 Benign neoplasm of meninges, unspecified; M51.36 Other intervertebral disc degeneration, lumbar region; E11.40 Type 2 diabetes mellitus with diabetic neuropathy, unspecified; E03.9 Hypothyroidism, unspecified; F32.9 Major depressive disorder, single episode, unspecified; G40.909 Epilepsy, unspecified, not intractable, without status epilepticus; Z86.73 Personal history of transient ischemic attack (TIA), and cerebral infarction without residual deficits; G31.84 Mild cognitive impairment of uncertain or unknown etiology; J30.9 Allergic rhinitis, unspecified; H91.90 Unspecified hearing loss, unspecified ear; H54.7 Unspecified visual loss; Z88.0 Allergy status to penicillin; Z88.2 Allergy status to sulfonamides; Z88.8 Allergy status to other drugs, medicaments and biological substances; Z79.02 Long term (current) use of antithrombotics/antiplatelets; Z79.82 Long term (current) use of aspirin; Z79.899 Other long term (current) drug therapy
CPT/HCPCS: 36415; 80053; 83036; 83880; 84443; 85025; 96360; 99285; J3480; 80048; 82272; A9270-GY; J1650

== ENCOUNTER 2017-12-06 10:05 | Inpatient (IN) | payer MEDICARE, OTHER ==
[2017-12-06] MEDS ORDERED: Magnesium Hydroxide 400 MG/5 ML Susp 30 ML Cup PO PRN (19:12)
[2017-12-06] MEDS ORDERED: Bisacodyl 10 MG Supp RECTAL PRN (19:12)
[2017-12-06] MEDS ORDERED: Triamcinolone Acetonide 0.1% Crm 15 GM Tube TOP PRN (19:28)
[2017-12-06] MEDS ORDERED: Cyclobenzaprine 10 MG Tab PO PRN (19:28)
--- NOTE | 2017-12-06 19:38 | PCM.HP ---
H&P History of Present Illness - General Date of Service: 12/06/17 Admit Problem/Dx: Admission Diagnosis/Problem Admission Diagnosis/Problem Weakness Source of Information: Patient, Old Records History Limitations: Reports: No Limitations - History of Present Illness Initial Comments - Free Text/Narative: Patient sent for Swing Bed admission with PT and OT after being treated for weakness/falls and suspected GI bleed at [facility] in [place]. Initially evaluated here at our facility prior to transfer to [place]. While there, she underwent upper and lower endoscopy. No focal bleed identified. Patient stabilized and sent here for strengthening and ambulation. - Related Data Allergies/Adverse Reactions: Allergies Allergy/AdvReac Type Severity Reaction Status Date / Time Penicillins Allergy Swelling Verified 12/06/17 11:18 Sulfa (Sulfonamide Allergy Redness Verified 12/06/17 11:18 Antibiotics) tramadol Allergy Delusions Verified 12/06/17 11:18 Home Medications: Home Meds Aspirin [Lo-Dose Aspirin EC] 81 mg PO DAILY 11/27/17 [History] Calcium Carbonate [Calcium] 500 mg PO DAILY 11/27/17 [History] Citalopram [Citalopram HBr] 20 mg PO DAILY 11/27/17 [History] Cyclobenzaprine [Flexeril] 10 mg PO BEDTIME PRN 11/27/17 [History] Donepezil [Aricept] 5 mg PO BEDTIME 11/27/17 [History] Esomeprazole Magnesium 20 mg PO DAILY 11/27/17 [History] Furosemide 20 mg PO DAILY 11/27/17 [History] Levothyroxine 125 mcg PO DAILY 11/27/17 [History] Mercaptopurine 50 mg PO DAILY 11/27/17 [History] NIFEdipine [Procardia Xl] 60 mg PO DAILY 11/27/17 [History] Solifenacin [Vesicare] 10 mg PO DAILY 11/27/17 [History] Triamcinolone Acetonide [Triamcinolone Acetonide 0.1% Crm] 1 applic TOP BID PRN 11/27/17 [History] Vitamin D 500 units PO DAILY 11/27/17 [History] atorvaSTATin [Lipitor] 20 mg PO QPM 11/27/17 [History] Carvedilol [Coreg] 3.125 mg PO BID 12/06/17 [History] Ferrous Sulfate 325 mg PO DAILY 12/06/17 [History] Magnesium Oxide [Magnesium] 400 mg PO BID 12/06/17 [History] Past Medical History HEENT History: Reports: Allergic Rhinitis, Hard of Hearing, Impaired Vision Cardiovascular History: Reports: CAD, High Cholesterol, Hypertension Respiratory History: Reports: Asthma Gastrointestinal History: Reports: Colon Polyp, Diverticulosis, Hepatitis, PUD Genitourinary History: Reports: Urinary Incontinence, Other (See Below) Other Genitourinary History: stress incontinence Musculoskeletal History: Reports: Back Pain, Chronic, Other (See Below) Other Musculoskeletal History: osteopenia, 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 Degenerative disk disease Neurological History: Reports: Neuropathy, Diabetic, Seizure, TIA, Other (See Below) Other Neuro History: mild cognitive impairment. auditory seizure Psychiatric History: Reports: Depression Endocrine/Metabolic History: Reports: Diabetes, Type II, Hypothyroidism Dermatologic History: Reports: Psoriasis, Other (See Below) Other Dermatologic History: inflammed seborrheic keratosis. actinic keratosis - Past Surgical History HEENT Surgical History: Reports: Cataract Surgery Cardiovascular Surgical History: Reports: Coronary Artery Bypass, Coronary Artery Stent Social & Family History - Tobacco Use Smoking Status *Q: Former Smoker Used Tobacco, but Quit: Yes Month Tobacco Last Used: - Caffeine Use Caffeine Use: Reports: Soda - Recreational Drug Use Recreational Drug Use: No H&P Review of Systems - Review of Systems: Review Of Systems: See Below General: Reports: No Symptoms HEENT: Reports: No Symptoms, Other (had mild sore throat several days ago, resolved. ) Pulmonary: Reports: Cough (recent cough developed since Wednesday). Denies: Shortness of Breath, Wheezing, Pleuritic Chest Pain, Sputum, Hemoptysis Cardiovascular: Reports: No Symptoms Gastrointestinal: Reports: Constipation, Melena (noted last week while inpatient ). Denies: Abdominal Pain, Black Stool, Bloody Stool, Diarrhea, Hematemesis, Nausea, Vomiting Genitourinary: Reports: No Symptoms Musculoskeletal: Reports: No Symptoms (no acute changes) Skin: Reports: Other (new lesion noted right hand) Psychiatric: Reports: No Symptoms Neurological: Reports: Other (recent falls, feels like legs giving out (no pain) ) Hematologic/Lymphatic: Reports: Anemia Exam - Exam Exam: See Below - Vital Signs Vital Signs: Last Vital Signs Temp 97.5 C H 12/06/17 11:57 Pulse 53 L 12/06/17 11:57 Resp BP 155/51 H 12/06/17 11:57 Pulse Ox 98 12/06/17 11:57 Weight: 91.535 kg - Exam General: Alert, Oriented, Cooperative HEENT: Conjunctiva Clear, EACs Clear, EOMI, Hearing Intact, Mucosa Moist & [place] , Nares Patent, Normal Nasal Septum, Posterior Pharynx Clear, Pupils Equal, Pupils Reactive Neck: Supple, Trachea Midline Lungs: Clear to Auscultation, Normal Respiratory Effort Cardiovascular: Regular Rate, Regular Rhythm GI/Abdominal Exam: Normal Bowel Sounds, Soft, Non-Tender, No Distention (obese abdomen), No Abnormal Bruit (Female) Exam: Deferred Rectal (Female) Exam: Normal Exam Back Exam: Normal Inspection. No: CVA Tenderness (L), CVA Tenderness (R), Muscle Spasm, Paraspinal Tenderness, Vertebral Tenderness Extremities: Normal Range of Motion, Non-Tender, Normal Capillary Refill, Pedal Edema (mild, left greater than right) Peripheral Pulses: 2+: Radial (L), Radial (R), Dorsalis Pedis (L), Dorsalis Pedis (R) Skin: Warm, Dry, Intact, Other (has circular lesion left dorsal hand. No drainage/redness/pustules/vesicles) Neurological: Strength Equal Bilateral, Normal Tone Neuro Extensive - Mental Status: Alert, Oriented x3, Normal Mood/Affect, Normal Cognition DTR: 2+: Bicep (L), Bicep (R), Patella (L), Patella (R) Psychiatric: Alert, Normal Affect, Normal Mood *Q Meaningful Use (ADM) - VTE *Q VTE Criteria *Q: - Stroke *Q Stroke Criteria *Q: - AMI *Q AMI Criteria *Q: - Problem List (1) Weakness SNOMED Code(s): 37483782 ICD Code: R53.1 - WEAKNESS Status: Acute Priority: High Current Visit: Yes Problem Details: PT and OT scheduled to evaluate patient. May be related to recent melena/GI bleed/anemia. (2) Multiple falls SNOMED Code(s): 642231194 ICD Code: R29.6 - REPEATED FALLS Status: Acute Priority: Medium Current Visit: Yes Problem Details: No falls since when originally seen in ER last week. (3) GI bleed SNOMED Code(s): 25359044 ICD Code: K92.2 - GASTROINTESTINAL HEMORRHAGE, UNSPECIFIED Status: Acute Priority: High Current Visit: No Problem Details: Negative endoscopy at [facility]. Continue to monitor. Qualifiers: GI bleed type/associated pathology: unspecified gastrointestinal hemorrhage type Qualified Code(s): K92.2 - Gastrointestinal hemorrhage, unspecified (4) Chronic anemia SNOMED Code(s): 844452624 ICD Code: D64.9 - ANEMIA, UNSPECIFIED Status: Chronic Priority: Medium Current Visit: Yes Problem Details: Chronic anemia with recent worsening secondary to suspected GI bleed. (5) Depression SNOMED Code(s): 42314902 ICD Code: F32.9 - MAJOR DEPRESSIVE DISORDER, SINGLE EPISODE, UNSPECIFIED Status: Chronic Priority: Low Current Visit: No Qualifiers: Depression Type: unspecified Qualified Code(s): F32.9 - Major depressive disorder, single episode, unspecified (6) CAD (coronary artery disease) SNOMED Code(s): 62110598 ICD Code: I25.10 - ATHSCL HEART DISEASE OF [place] CORONARY ARTERY W/O ANG PCTRS Status: Chronic Priority: Low Current Visit: No Qualifiers: Coronary Disease-Associated Artery/Lesion type: unspecified vessel or lesion type (7) Diabetes SNOMED Code(s): 57885471 ICD Code: E11.9 - TYPE 2 DIABETES MELLITUS WITHOUT COMPLICATIONS Status: Chronic Priority: Medium Current Visit: Yes Problem Details: Patient appears to not be on any medication to manage elevated blood sugars. Apparently on sliding scale while in [place]. Will continue bedside glucose monitoring and obtain A1C tomorrow morning. Plan at this time will be to initiate oral medication and consider need for insulin based on pattern observed while on Swing Bed. Qualifiers: Diabetes mellitus type: type 2 Chronic kidney disease stage: unspecified stage (8) Diverticulosis SNOMED Code(s): 63061986 ICD Code: K57.90 - DVRTCLOS OF INTEST, PART UNSP, W/O PERF OR ABSCESS W/O BLEED Status: Chronic Priority: Low Current Visit: No (9) HTN (hypertension) SNOMED Code(s): 99793712 ICD Code: I10 - ESSENTIAL (PRIMARY) HYPERTENSION Status: Chronic Priority : Low Current Visit: No Qualifiers: Hypertension type: essential hypertension Qualified Code(s): I10 - Essential (primary) hypertension (10) Dyslipidemia SNOMED Code(s): 278093316 ICD Code: E78.5 - HYPERLIPIDEMIA, UNSPECIFIED Status: Chronic Priority: Low Current Visit: No (11) Hypothyroid SNOMED Code(s): 49849602 ICD Code: E03.9 - HYPOTHYROIDISM, UNSPECIFIED Status: Chronic Priority: Low Current Visit: Yes Problem Details: Elevated TSH noted during ER workup. (12) Skin lesion of hand SNOMED Code(s): 782395618 ICD Code: L98.9 - DISORDER OF THE SKIN AND SUBCUTANEOUS TISSUE, UNSPECIFIED Status: Acute Priority: Low Current Visit: Yes Problem Details: Patient has had rapidly growing skin lesion on right hand. Consider removal while on SB and send to pathology. Consider Derm referral. Problem List Initiated/Reviewed/Updated: Yes Orders Last 24hrs: Active Orders 24 hr Category Date Time Status Patient Status [ADT] Routine ADT 12/06/17 19:12 Ordered Ambulate [RC] ASDIRECTED Care 12/06/17 19:12 Ordered Antiembolic Devices [RC] .Routine Care 12/06/17 19:26 Ordered Glucose [Blood Glucose Check, Bedside] [RC] QIDACANDBED Care 12/06/17 19:32 Ordered May Shower [RC] ASDIRECTED Care 12/06/17 19:12 Ordered Oxygen Therapy [RC] PRN Care 12/06/17 19:25 Ordered Pulse Oximetry [RC] PRN Care 12/06/17 19:25 Ordered Up With Assistance [RC] ASDIRECTED Care 12/06/17 19:12 Ordered VTE/DVT Education [RC] PER UNIT ROUTINE Care 12/06/17 19:26 Ordered Vital Signs [RC] QSHIFT Care 12/06/17 19:12 Ordered Consult to Occupational Therapy [OT Evaluation and Cons 12/06/17 19:28 Ordered Treatment] [CONS] Routine PT Evaluation and Treatment [CONS] Routine Cons 12/06/17 19:28 Ordered ADA Diabetic [[place] [employer] Diet] [DIET Diet 12/07/17 Breakfast Ordered ] Regular Diet [DIET] Diet 12/06/17 Dinner Active Acetaminophen [Tylenol] Med 12/06/17 19:12 Ordered 650 mg PO Q4H PRN Aspirin [Halfprin] Med 12/07/17 08:00 Ordered 81 mg PO DAILY Benzonatate [Tessalon Perles] Med 12/06/17 19:45 Ordered 100 mg PO BID Bisacodyl [Dulcolax] Med 12/06/17 19:12 Ordered 10 mg RECTAL DAILY PRN Calcium Carbonate [Calcium] Med 12/07/17 08:00 Ordered 500 mg PO DAILY Carvedilol [Coreg] Med 12/07/17 08:00 Ordered 3.125 mg PO BID Cholecalciferol (Vitamin D3) [Vitamin D3] Med 12/07/17 08:00 Ordered 2,000 units PO DAILY Citalopram [Celexa] Med 12/07/17 08:00 Ordered 20 mg PO DAILY Cyclobenzaprine [Flexeril] Med 12/06/17 19:28 Ordered 10 mg PO BEDTIME PRN Donepezil [Aricept] Med 12/06/17 20:00 Ordered 5 mg PO BEDTIME Esomeprazole Magnesium [Esomeprazole Magnesium] Med 12/07/17 08:00 Ordered 20 mg PO DAILY Ferrous Sulfate Med 12/07/17 08:00 Ordered 325 mg PO DAILY Furosemide [Lasix] Med 12/07/17 08:00 Ordered 20 mg PO DAILY Levothyroxine [Levothyroxine] Med 12/07/17 08:00 Ordered 125 mcg PO DAILY Magnesium Hydroxide [Milk of Magnesia] Med 12/06/17 19:12 Ordered 30 ml PO BID PRN Magnesium Oxide Med 12/07/17 08:00 Ordered 400 mg PO BID Mercaptopurine [Mercaptopurine] Med 12/07/17 08:00 Ordered 50 mg PO DAILY NIFEdipine [Procardia Xl] Med 12/07/17 08:00 Ordered 60 mg PO DAILY Solifenacin [Vesicare] Med 12/07/17 08:00 Ordered 10 mg PO DAILY Triamcinolone Acetonide [Triamcinolone Acetonide 0.1% Med 12/06/17 19:28 Ordered Crm] 1 applic TOP BID PRN atorvaSTATin [Lipitor] Med 12/07/17 18:00 Ordered 20 mg PO QPM Antiembolic Hose [OM.PC] Per Unit Routine Oth 12/06/17 19:27 Ordered DVT/VTE Prophylaxis Reflex [OM.PC] Routine Oth 12/06/17 19:12 Ordered Medication Orders Acetaminophen (Tylenol) 650 mg PO Q4H PRN PRN Reason: analgesia/fever Aspirin (Halfprin) 81 mg PO DAILY [facility] Benzonatate (Tessalon Perles) 100 mg PO BID [facility] Bisacodyl (Dulcolax) 10 mg RECTAL DAILY PRN PRN Reason: Constipation Carvedilol (Coreg) 3.125 mg PO BID [facility] Cholecalciferol (Vitamin D3) 2,000 units PO DAILY [facility] Citalopram Hydrobromide (Celexa) 20 mg PO DAILY [facility] Cyclobenzaprine HCl (Flexeril) 10 mg PO BEDTIME PRN PRN Reason: Muscle Spasm Donepezil HCl (Aricept) 5 mg PO BEDTIME [facility] Ferrous Sulfate (Ferrous Sulfate) 325 mg PO DAILY [facility] Furosemide (Lasix) 20 mg PO DAILY [facility] Magnesium Hydroxide (Milk Of Magnesia) 30 ml PO BID PRN PRN Reason: Constipation Magnesium Oxide (Magnesium Oxide) 400 mg PO BID [facility] Non-Formulary Medication (Atorvastatin [Lipitor]) 20 mg PO QPM [facility] Non-Formulary Medication (Calcium Carbonate [Calcium]) 500 mg PO DAILY [facility] Non-Formulary Medication (Esomeprazole Magnesium [Esomeprazole Magnesium]) 20 mg PO DAILY [facility] Non-Formulary Medication (Levothyroxine [Levothyroxine]) 125 mcg PO DAILY [facility] Non-Formulary Medication (Mercaptopurine [Mercaptopurine]) 50 mg PO DAILY [facility] Non-Formulary Medication (Nifedipine [Procardia Xl]) 60 mg PO DAILY [facility] Non-Formulary Medication (Solifenacin [Vesicare]) 10 mg PO DAILY [facility] Triamcinolone Acetonide (Triamcinolone Acetonide 0.1% Crm) gm TOP BID PRN PRN Reason: affected skin areas Assessment/Plan Comment:: as above.
[2017-12-06] MEDS: Benzonatate 100 MG Cap PO SCH (21:36)
[2017-12-06] MEDS: Donepezil 5 MG Tab PO SCH (21:36)
[2017-12-07] MEDS ORDERED: Levothyroxine 100 MCG Tab PO SCH (07:30)
[2017-12-07] MEDS ORDERED: Levothyroxine 25 MCG Tab PO SCH (07:30)
[2017-12-07] MEDS: metFORMIN 500 MG Tab PO SCH ×2 (07:42→17:30)
[2017-12-07] MEDS: Levothyroxine 25 MCG Tab PO SCH (07:42)
[2017-12-07] MEDS: Levothyroxine 100 MCG Tab PO SCH (07:43)
[2017-12-07] MEDS: Citalopram 20 MG Tab PO SCH (07:43)
[2017-12-07] MEDS: Aspirin 81 MG Tab.EC PO SCH (07:44)
[2017-12-07] MEDS: Carvedilol 3.125 MG Tab PO SCH ×2 (07:44→17:30)
[2017-12-07] MEDS: Ferrous Sulfate 325 MG Tab PO SCH (07:44)
[2017-12-07] MEDS: Magnesium Oxide 400 MG Tab PO SCH ×2 (07:45→17:31)
[2017-12-07] MEDS: NIFEdipine 30 MG Tab.ER PO SCH (07:45)
[2017-12-07] MEDS: Furosemide 20 MG Tab PO SCH (07:45)
[2017-12-07] MEDS: Cholecalciferol (Vitamin D3) 1,000 Unit Tab PO SCH (07:45)
[2017-12-07] MEDS: Calcium Carbonate 500 MG Tab.Chew PO SCH (07:46)
[2017-12-07] MEDS: Benzonatate 100 MG Cap PO SCH ×2 (07:46→17:31)
[2017-12-07] MEDS ORDERED: ESOMEPRAZOLE MAGNESIUM 20 MG PO SCH (08:00)
[2017-12-07] MEDS ORDERED: SOLIFENACIN 10 MG PO SCH (08:00)
[2017-12-07] MEDS: Pantoprazole 40 MG Tab.CR PO SCH (08:54)
[2017-12-07] MEDS: MERCAPTOPURINE 50 MG PO SCH (08:54)
[2017-12-07] MEDS: Trospium 20 MG Tab PO SCH (08:54)
[2017-12-07] MEDS: atorvaSTATin 40 MG Tab PO SCH (17:31)
[2017-12-07] MEDS: Donepezil 5 MG Tab PO SCH (19:46)
[2017-12-07] MEDS: Temazepam 15 MG Cap PO PRN (21:53)
[2017-12-08] MEDS: metFORMIN 500 MG Tab PO SCH ×2 (07:41→17:22)
[2017-12-08] MEDS: Benzonatate 100 MG Cap PO SCH ×2 (07:41→17:22)
[2017-12-08] MEDS: Cholecalciferol (Vitamin D3) 1,000 Unit Tab PO SCH (07:41)
[2017-12-08] MEDS: Ferrous Sulfate 325 MG Tab PO SCH (07:42)
[2017-12-08] MEDS: Aspirin 81 MG Tab.EC PO SCH (07:42)
[2017-12-08] MEDS: Pantoprazole 40 MG Tab.CR PO SCH (07:42)
[2017-12-08] MEDS: Trospium 20 MG Tab PO SCH (07:42)
[2017-12-08] MEDS: NIFEdipine 30 MG Tab.ER PO SCH (07:42)
[2017-12-08] MEDS: MERCAPTOPURINE 50 MG PO SCH (07:42)
[2017-12-08] MEDS: Carvedilol 3.125 MG Tab PO SCH ×2 (07:42→17:22)
[2017-12-08] MEDS: Furosemide 20 MG Tab PO SCH (07:42)
[2017-12-08] MEDS: Magnesium Oxide 400 MG Tab PO SCH ×2 (07:43→17:22)
[2017-12-08] MEDS: Levothyroxine 100 MCG Tab PO SCH (07:43)
[2017-12-08] MEDS: Levothyroxine 25 MCG Tab PO SCH (07:43)
[2017-12-08] MEDS: Citalopram 20 MG Tab PO SCH (07:43)
[2017-12-08] MEDS: Calcium Carbonate 500 MG Tab.Chew PO SCH (07:43)
[2017-12-08] MEDS: atorvaSTATin 40 MG Tab PO SCH (17:22)
[2017-12-08] MEDS: Donepezil 5 MG Tab PO SCH (19:08)
[2017-12-08] MEDS: Temazepam 15 MG Cap PO PRN (22:17)
[2017-12-09] MEDS: metFORMIN 500 MG Tab PO SCH ×2 (08:16→17:28)
[2017-12-09] MEDS: Levothyroxine 100 MCG Tab PO SCH (08:17)
[2017-12-09] MEDS: Levothyroxine 25 MCG Tab PO SCH (08:17)
[2017-12-09] MEDS: Carvedilol 3.125 MG Tab PO SCH ×2 (08:18→17:29)
[2017-12-09] MEDS: Ferrous Sulfate 325 MG Tab PO SCH (08:18)
[2017-12-09] MEDS: Citalopram 20 MG Tab PO SCH (08:18)
[2017-12-09] MEDS: Aspirin 81 MG Tab.EC PO SCH (08:19)
[2017-12-09] MEDS: Furosemide 20 MG Tab PO SCH (08:19)
[2017-12-09] MEDS: Magnesium Oxide 400 MG Tab PO SCH ×2 (08:19→17:29)
[2017-12-09] MEDS: MERCAPTOPURINE 50 MG PO SCH (08:20)
[2017-12-09] MEDS: NIFEdipine 30 MG Tab.ER PO SCH (08:20)
[2017-12-09] MEDS: Benzonatate 100 MG Cap PO SCH ×2 (08:21→17:29)
[2017-12-09] MEDS: Pantoprazole 40 MG Tab.CR PO SCH (08:21)
[2017-12-09] MEDS: Trospium 20 MG Tab PO SCH (08:21)
[2017-12-09] MEDS: Calcium Carbonate 500 MG Tab.Chew PO SCH (08:22)
[2017-12-09] MEDS: Cholecalciferol (Vitamin D3) 1,000 Unit Tab PO SCH (08:22)
[2017-12-09] MEDS: atorvaSTATin 40 MG Tab PO SCH (17:29)
[2017-12-09] MEDS: Donepezil 5 MG Tab PO SCH (19:32)
[2017-12-09] MEDS: Temazepam 15 MG Cap PO PRN (22:00)
[2017-12-10] MEDS: Furosemide 20 MG Tab PO SCH (08:02)
[2017-12-10] MEDS: Benzonatate 100 MG Cap PO SCH ×2 (08:02→17:26)
[2017-12-10] MEDS: Levothyroxine 100 MCG Tab PO SCH (08:02)
[2017-12-10] MEDS: Calcium Carbonate 500 MG Tab.Chew PO SCH (08:02)
[2017-12-10] MEDS: Magnesium Oxide 400 MG Tab PO SCH ×2 (08:02→17:25)
[2017-12-10] MEDS: Cholecalciferol (Vitamin D3) 1,000 Unit Tab PO SCH (08:03)
[2017-12-10] MEDS: Citalopram 20 MG Tab PO SCH (08:03)
[2017-12-10] MEDS: MERCAPTOPURINE 50 MG PO SCH (08:04)
[2017-12-10] MEDS: NIFEdipine 30 MG Tab.ER PO SCH (08:04)
[2017-12-10] MEDS: Aspirin 81 MG Tab.EC PO SCH (08:04)
[2017-12-10] MEDS: Pantoprazole 40 MG Tab.CR PO SCH (08:04)
[2017-12-10] MEDS: metFORMIN 500 MG Tab PO SCH ×2 (08:05→17:26)
[2017-12-10] MEDS: Levothyroxine 25 MCG Tab PO SCH (08:05)
[2017-12-10] MEDS: Ferrous Sulfate 325 MG Tab PO SCH (08:05)
[2017-12-10] MEDS: Carvedilol 3.125 MG Tab PO SCH ×2 (08:05→17:27)
[2017-12-10] MEDS: Trospium 20 MG Tab PO SCH (08:05)
[2017-12-10] MEDS: atorvaSTATin 40 MG Tab PO SCH (17:26)
[2017-12-10] MEDS: Donepezil 5 MG Tab PO SCH (19:34)
[2017-12-10] MEDS: Acetaminophen 325 MG Tab PO PRN (20:56)
[2017-12-10] MEDS: Temazepam 15 MG Cap PO PRN (20:56)
[2017-12-11] MEDS: Furosemide 20 MG Tab PO SCH (08:59)
[2017-12-11] MEDS: Ferrous Sulfate 325 MG Tab PO SCH (08:59)
[2017-12-11] MEDS: Calcium Carbonate 500 MG Tab.Chew PO SCH (08:59)
[2017-12-11] MEDS: MERCAPTOPURINE 50 MG PO SCH (08:59)
[2017-12-11] MEDS: Levothyroxine 25 MCG Tab PO SCH (09:00)
[2017-12-11] MEDS: Aspirin 81 MG Tab.EC PO SCH (09:00)
[2017-12-11] MEDS: Trospium 20 MG Tab PO SCH (09:00)
[2017-12-11] MEDS: Magnesium Oxide 400 MG Tab PO SCH ×2 (09:00→17:52)
[2017-12-11] MEDS: Levothyroxine 100 MCG Tab PO SCH (09:00)
[2017-12-11] MEDS: metFORMIN 500 MG Tab PO SCH ×2 (09:00→17:53)
[2017-12-11] MEDS: Cholecalciferol (Vitamin D3) 1,000 Unit Tab PO SCH (09:00)
[2017-12-11] MEDS: Pantoprazole 40 MG Tab.CR PO SCH (09:01)
[2017-12-11] MEDS: Benzonatate 100 MG Cap PO SCH ×2 (09:01→17:53)
[2017-12-11] MEDS: Citalopram 20 MG Tab PO SCH (09:01)
[2017-12-11] MEDS: NIFEdipine 30 MG Tab.ER PO SCH (09:07)
[2017-12-11] MEDS: Carvedilol 3.125 MG Tab PO SCH ×2 (09:07→17:55)
[2017-12-11] MEDS: atorvaSTATin 40 MG Tab PO SCH (17:54)
[2017-12-11] MEDS: Donepezil 5 MG Tab PO SCH (19:05)
[2017-12-11] MEDS: Acetaminophen 325 MG Tab PO PRN (21:49)
[2017-12-11] MEDS: Temazepam 15 MG Cap PO PRN (21:49)
[2017-12-12] MEDS: MERCAPTOPURINE 50 MG PO SCH (09:21)
[2017-12-12] MEDS: Ferrous Sulfate 325 MG Tab PO SCH (09:21)
[2017-12-12] MEDS: Furosemide 20 MG Tab PO SCH (09:21)
[2017-12-12] MEDS: Levothyroxine 25 MCG Tab PO SCH (09:22)
[2017-12-12] MEDS: Citalopram 20 MG Tab PO SCH (09:22)
[2017-12-12] MEDS: Benzonatate 100 MG Cap PO SCH ×2 (09:22→18:24)
[2017-12-12] MEDS: Levothyroxine 100 MCG Tab PO SCH (09:22)
[2017-12-12] MEDS: Trospium 20 MG Tab PO SCH (09:23)
[2017-12-12] MEDS: metFORMIN 500 MG Tab PO SCH ×2 (09:23→18:25)
[2017-12-12] MEDS: Aspirin 81 MG Tab.EC PO SCH (09:23)
[2017-12-12] MEDS: Calcium Carbonate 500 MG Tab.Chew PO SCH (09:23)
[2017-12-12] MEDS: Cholecalciferol (Vitamin D3) 1,000 Unit Tab PO SCH (09:24)
[2017-12-12] MEDS: Pantoprazole 40 MG Tab.CR PO SCH (09:24)
[2017-12-12] MEDS: Magnesium Oxide 400 MG Tab PO SCH ×2 (09:24→18:24)
[2017-12-12] MEDS: NIFEdipine 30 MG Tab.ER PO SCH (09:29)
[2017-12-12] MEDS: Carvedilol 3.125 MG Tab PO SCH ×2 (09:29→18:24)
[2017-12-12] MEDS: Insulin Regular, Human 100 Units/ML 3 ML Vial SUBCUT SCH (18:22)
[2017-12-12] MEDS: atorvaSTATin 40 MG Tab PO SCH (18:25)
[2017-12-12] MEDS: Donepezil 5 MG Tab PO SCH (19:02)
[2017-12-12] MEDS: Insulin Detemir 100 Units/ML 3 ML Pen SUBCUT SCH (19:02)
[2017-12-12] MEDS: Temazepam 15 MG Cap PO PRN (21:51)
[2017-12-12] MEDS: Acetaminophen 325 MG Tab PO PRN (21:51)
[2017-12-13] MEDS: Cholecalciferol (Vitamin D3) 1,000 Unit Tab PO SCH (09:32)
[2017-12-13] MEDS: Calcium Carbonate 500 MG Tab.Chew PO SCH (09:32)
[2017-12-13] MEDS: NIFEdipine 30 MG Tab.ER PO SCH (09:32)
[2017-12-13] MEDS: Aspirin 81 MG Tab.EC PO SCH (09:32)
[2017-12-13] MEDS: MERCAPTOPURINE 50 MG PO SCH (09:32)
[2017-12-13] MEDS: Levothyroxine 25 MCG Tab PO SCH (09:32)
[2017-12-13] MEDS: Magnesium Oxide 400 MG Tab PO SCH ×2 (09:32→17:13)
[2017-12-13] MEDS: Carvedilol 3.125 MG Tab PO SCH ×2 (09:32→17:13)
[2017-12-13] MEDS: Levothyroxine 100 MCG Tab PO SCH (09:38)
[2017-12-13] MEDS: Ferrous Sulfate 325 MG Tab PO SCH (09:38)
[2017-12-13] MEDS: Pantoprazole 40 MG Tab.CR PO SCH (09:38)
[2017-12-13] MEDS: Citalopram 20 MG Tab PO SCH (09:38)
[2017-12-13] MEDS: Furosemide 20 MG Tab PO SCH (09:39)
[2017-12-13] MEDS: Benzonatate 100 MG Cap PO SCH ×2 (09:39→17:13)
[2017-12-13] MEDS: metFORMIN 500 MG Tab PO SCH ×2 (09:39→17:13)
[2017-12-13] MEDS: Trospium 20 MG Tab PO SCH (09:39)
[2017-12-13] MEDS: Insulin Regular, Human 100 Units/ML 3 ML Vial SUBCUT SCH ×2 (09:41→18:08)
[2017-12-13] MEDS: atorvaSTATin 40 MG Tab PO SCH (17:15)
--- NOTE | 2017-12-13 18:07 | PCM.SN ---
- Free Text/Narrative Note: Patient has been having blood sugars monitored since admission. Metformin increased today. Levemir QHS introduced. Will hold short acting/sliding scale regular insulin for three days while impact of long acting insulin on patient's daily blood glucoses is assessed. There is concern that patient will have difficulty learning to use insulin correctly as well as be compliant with using it and checking blood sugars regularly. A simplified regimen will be best for her if she returns to a home situation. She has been noncompliant in past with picking up prescribed medication and using it as directed. Currently she is progressing slowly with PT. There is concern that she may not be able to live independently again, or with grandson, as she will require continued assistance with ADLs and self care. May need to consider referral to neuro or urology if continued issues with urinary incontinence and lower extremity weakness continue as these are relatively new problems since the recent GI bleed and so far have not really shown any significant improvement.
[2017-12-13] MEDS: Donepezil 5 MG Tab PO SCH (19:25)
[2017-12-13] MEDS: Insulin Detemir 100 Units/ML 3 ML Pen SUBCUT SCH (19:26)
[2017-12-13] MEDS: Acetaminophen 325 MG Tab PO PRN (21:49)
[2017-12-13] MEDS: Temazepam 15 MG Cap PO PRN (21:49)
[2017-12-14] MEDS: MERCAPTOPURINE 50 MG PO SCH (08:14)
[2017-12-14] MEDS: Cholecalciferol (Vitamin D3) 1,000 Unit Tab PO SCH (08:15)
[2017-12-14] MEDS: Ferrous Sulfate 325 MG Tab PO SCH (08:15)
[2017-12-14] MEDS: Calcium Carbonate 500 MG Tab.Chew PO SCH (08:16)
[2017-12-14] MEDS: Pantoprazole 40 MG Tab.CR PO SCH (08:16)
[2017-12-14] MEDS: Aspirin 81 MG Tab.EC PO SCH (08:16)
[2017-12-14] MEDS: Levothyroxine 25 MCG Tab PO SCH (08:17)
[2017-12-14] MEDS: Carvedilol 3.125 MG Tab PO SCH ×2 (08:17→17:36)
[2017-12-14] MEDS: Benzonatate 100 MG Cap PO SCH ×2 (08:21→17:35)
[2017-12-14] MEDS: metFORMIN 500 MG Tab PO SCH ×2 (08:22→16:31)
[2017-12-14] MEDS: Magnesium Oxide 400 MG Tab PO SCH ×2 (08:22→17:35)
[2017-12-14] MEDS: NIFEdipine 30 MG Tab.ER PO SCH (08:22)
[2017-12-14] MEDS: Citalopram 20 MG Tab PO SCH (08:23)
[2017-12-14] MEDS: Furosemide 20 MG Tab PO SCH (08:23)
[2017-12-14] MEDS: Acetaminophen 325 MG Tab PO PRN ×2 (08:23→21:39)
[2017-12-14] MEDS: Levothyroxine 100 MCG Tab PO SCH (08:23)
[2017-12-14] MEDS: Trospium 20 MG Tab PO SCH (08:24)
[2017-12-14] MEDS: atorvaSTATin 40 MG Tab PO SCH (17:35)
[2017-12-14] MEDS: Donepezil 5 MG Tab PO SCH (19:27)
[2017-12-14] MEDS: Insulin Detemir 100 Units/ML 3 ML Pen SUBCUT SCH (19:28)
[2017-12-14] MEDS: Temazepam 15 MG Cap PO PRN (21:39)
[2017-12-15] MEDS: Levothyroxine 25 MCG Tab PO SCH (08:27)
[2017-12-15] MEDS: Carvedilol 3.125 MG Tab PO SCH ×2 (08:28→17:46)
[2017-12-15] MEDS: Furosemide 20 MG Tab PO SCH (08:29)
[2017-12-15] MEDS: Aspirin 81 MG Tab.EC PO SCH (08:29)
[2017-12-15] MEDS: metFORMIN 500 MG Tab PO SCH ×2 (08:29→17:46)
[2017-12-15] MEDS: Trospium 20 MG Tab PO SCH (08:30)
[2017-12-15] MEDS: Citalopram 20 MG Tab PO SCH (08:30)
[2017-12-15] MEDS: Calcium Carbonate 500 MG Tab.Chew PO SCH (08:31)
[2017-12-15] MEDS: Magnesium Oxide 400 MG Tab PO SCH ×2 (08:31→17:46)
[2017-12-15] MEDS: Pantoprazole 40 MG Tab.CR PO SCH (08:31)
[2017-12-15] MEDS: Ferrous Sulfate 325 MG Tab PO SCH (08:31)
[2017-12-15] MEDS: Cholecalciferol (Vitamin D3) 1,000 Unit Tab PO SCH (08:32)
[2017-12-15] MEDS: Benzonatate 100 MG Cap PO SCH ×2 (08:32→17:53)
[2017-12-15] MEDS: NIFEdipine 30 MG Tab.ER PO SCH (08:32)
[2017-12-15] MEDS: Levothyroxine 100 MCG Tab PO SCH (08:33)
[2017-12-15] MEDS: MERCAPTOPURINE 50 MG PO SCH (08:34)
[2017-12-15] MEDS: atorvaSTATin 40 MG Tab PO SCH (17:54)
[2017-12-15] MEDS: Donepezil 5 MG Tab PO SCH (19:19)
[2017-12-15] MEDS: Insulin Detemir 100 Units/ML 3 ML Pen SUBCUT SCH (19:19)
[2017-12-15] MEDS: Temazepam 15 MG Cap PO PRN (21:34)
[2017-12-15] MEDS: Acetaminophen 325 MG Tab PO PRN (21:34)
[2017-12-16] MEDS: metFORMIN 500 MG Tab PO SCH ×2 (08:42→17:31)
[2017-12-16] MEDS: Levothyroxine 25 MCG Tab PO SCH (08:42)
[2017-12-16] MEDS: Levothyroxine 100 MCG Tab PO SCH (08:43)
[2017-12-16] MEDS: Carvedilol 3.125 MG Tab PO SCH ×2 (08:43→17:31)
[2017-12-16] MEDS: Citalopram 20 MG Tab PO SCH (08:43)
[2017-12-16] MEDS: Magnesium Oxide 400 MG Tab PO SCH ×2 (08:44→17:31)
[2017-12-16] MEDS: Pantoprazole 40 MG Tab.CR PO SCH (08:44)
[2017-12-16] MEDS: Trospium 20 MG Tab PO SCH (08:44)
[2017-12-16] MEDS: Calcium Carbonate 500 MG Tab.Chew PO SCH (08:44)
[2017-12-16] MEDS: Furosemide 20 MG Tab PO SCH (08:44)
[2017-12-16] MEDS: NIFEdipine 30 MG Tab.ER PO SCH (08:44)
[2017-12-16] MEDS: MERCAPTOPURINE 50 MG PO SCH (08:44)
[2017-12-16] MEDS: Cholecalciferol (Vitamin D3) 1,000 Unit Tab PO SCH (08:44)
[2017-12-16] MEDS: Aspirin 81 MG Tab.EC PO SCH (08:44)
[2017-12-16] MEDS: Benzonatate 100 MG Cap PO SCH ×2 (08:44→17:31)
[2017-12-16] MEDS: Ferrous Sulfate 325 MG Tab PO SCH (08:44)
[2017-12-16] MEDS: atorvaSTATin 40 MG Tab PO SCH (17:31)
[2017-12-16] MEDS: Donepezil 5 MG Tab PO SCH (19:16)
[2017-12-16] MEDS: Insulin Detemir 100 Units/ML 3 ML Pen SUBCUT SCH (19:16)
[2017-12-16] MEDS: Acetaminophen 325 MG Tab PO PRN (21:30)
[2017-12-16] MEDS: Temazepam 15 MG Cap PO PRN (21:31)
[2017-12-17] MEDS: NIFEdipine 30 MG Tab.ER PO SCH (07:48)
[2017-12-17] MEDS: Trospium 20 MG Tab PO SCH (07:49)
[2017-12-17] MEDS: Furosemide 20 MG Tab PO SCH (07:49)
[2017-12-17] MEDS: Cholecalciferol (Vitamin D3) 1,000 Unit Tab PO SCH (07:49)
[2017-12-17] MEDS: Aspirin 81 MG Tab.EC PO SCH (07:49)
[2017-12-17] MEDS: Magnesium Oxide 400 MG Tab PO SCH ×2 (07:49→17:01)
[2017-12-17] MEDS: Benzonatate 100 MG Cap PO SCH ×2 (07:50→17:02)
[2017-12-17] MEDS: Calcium Carbonate 500 MG Tab.Chew PO SCH (07:50)
[2017-12-17] MEDS: Carvedilol 3.125 MG Tab PO SCH ×2 (07:51→17:00)
[2017-12-17] MEDS: Citalopram 20 MG Tab PO SCH (07:51)
[2017-12-17] MEDS: Ferrous Sulfate 325 MG Tab PO SCH (07:52)
[2017-12-17] MEDS: Pantoprazole 40 MG Tab.CR PO SCH (07:52)
[2017-12-17] MEDS: MERCAPTOPURINE 50 MG PO SCH (07:52)
[2017-12-17] MEDS: Levothyroxine 25 MCG Tab PO SCH (07:58)
[2017-12-17] MEDS: Levothyroxine 100 MCG Tab PO SCH (07:59)
[2017-12-17] MEDS: metFORMIN 500 MG Tab PO SCH ×2 (07:59→17:02)
[2017-12-17] MEDS: atorvaSTATin 40 MG Tab PO SCH (17:01)
[2017-12-17] MEDS: Donepezil 5 MG Tab PO SCH (19:40)
[2017-12-17] MEDS: Insulin Detemir 100 Units/ML 3 ML Pen SUBCUT SCH (19:40)
[2017-12-17] MEDS: Acetaminophen 325 MG Tab PO PRN (21:19)
[2017-12-18] MEDS: Cholecalciferol (Vitamin D3) 1,000 Unit Tab PO SCH (07:44)
[2017-12-18] MEDS: NIFEdipine 30 MG Tab.ER PO SCH (07:45)
[2017-12-18] MEDS: Pantoprazole 40 MG Tab.CR PO SCH (07:45)
[2017-12-18] MEDS: Ferrous Sulfate 325 MG Tab PO SCH (07:45)
[2017-12-18] MEDS: Trospium 20 MG Tab PO SCH (07:45)
[2017-12-18] MEDS: Levothyroxine 100 MCG Tab PO SCH (07:45)
[2017-12-18] MEDS: Furosemide 20 MG Tab PO SCH (07:45)
[2017-12-18] MEDS: Carvedilol 3.125 MG Tab PO SCH ×2 (07:45→17:06)
[2017-12-18] MEDS: Levothyroxine 25 MCG Tab PO SCH (07:45)
[2017-12-18] MEDS: Calcium Carbonate 500 MG Tab.Chew PO SCH (07:45)
[2017-12-18] MEDS: metFORMIN 500 MG Tab PO SCH ×2 (07:46→16:48)
[2017-12-18] MEDS: Magnesium Oxide 400 MG Tab PO SCH ×2 (07:46→17:05)
[2017-12-18] MEDS: Benzonatate 100 MG Cap PO SCH ×2 (07:46→17:07)
[2017-12-18] MEDS: Aspirin 81 MG Tab.EC PO SCH (07:46)
[2017-12-18] MEDS: Citalopram 20 MG Tab PO SCH (07:46)
[2017-12-18] MEDS: MERCAPTOPURINE 50 MG PO SCH (07:47)
[2017-12-18] MEDS: atorvaSTATin 40 MG Tab PO SCH (17:06)
[2017-12-18] MEDS: Insulin Detemir 100 Units/ML 3 ML Pen SUBCUT SCH (19:58)
[2017-12-18] MEDS: Donepezil 5 MG Tab PO SCH (19:59)
[2017-12-18] MEDS: Temazepam 15 MG Cap PO PRN (21:50)
[2017-12-18] MEDS: Acetaminophen 325 MG Tab PO PRN (21:50)
[2017-12-19] MEDS: Levothyroxine 100 MCG Tab PO SCH (07:56)
[2017-12-19] MEDS: Ferrous Sulfate 325 MG Tab PO SCH (07:56)
[2017-12-19] MEDS: Benzonatate 100 MG Cap PO SCH ×2 (07:57→17:14)
[2017-12-19] MEDS: Trospium 20 MG Tab PO SCH (07:57)
[2017-12-19] MEDS: Pantoprazole 40 MG Tab.CR PO SCH (07:57)
[2017-12-19] MEDS: Citalopram 20 MG Tab PO SCH (07:57)
[2017-12-19] MEDS: Magnesium Oxide 400 MG Tab PO SCH ×2 (07:57→17:14)
[2017-12-19] MEDS: Levothyroxine 25 MCG Tab PO SCH (07:57)
[2017-12-19] MEDS: Aspirin 81 MG Tab.EC PO SCH (07:57)
[2017-12-19] MEDS: Calcium Carbonate 500 MG Tab.Chew PO SCH (07:57)
[2017-12-19] MEDS: Cholecalciferol (Vitamin D3) 1,000 Unit Tab PO SCH (07:58)
[2017-12-19] MEDS: metFORMIN 500 MG Tab PO SCH ×2 (07:58→17:14)
[2017-12-19] MEDS: Carvedilol 3.125 MG Tab PO SCH ×2 (07:59→17:14)
[2017-12-19] MEDS: Furosemide 20 MG Tab PO SCH (07:59)
[2017-12-19] MEDS: NIFEdipine 30 MG Tab.ER PO SCH (07:59)
[2017-12-19] MEDS: MERCAPTOPURINE 50 MG PO SCH (08:00)
--- NOTE | 2017-12-19 16:58 | PCM.PN ---
- General Info Date of Service: 12/19/17 Admission Dx/Problem (Free Text): Admission Diagnosis/Problem Admission Diagnosis/Problem Weakness Functional Status: Reports: Pain Controlled, Tolerating Diet, Ambulating, Urinating (incontinent at times). Denies: New Symptoms - Review of Systems General: Reports: Fatigue (general and continuing) HEENT: Reports: No Symptoms (no acute changes) Pulmonary: Reports: No Symptoms (no acute changes) Cardiovascular: Reports: No Symptoms (no acute changes) Gastrointestinal: Reports: No Symptoms (no acute changes) Genitourinary: Reports: No Symptoms (no acute changes) Musculoskeletal: Reports: No Symptoms (no acute changes) Skin: Reports: No Symptoms (no acute changes) Neurological: Reports: No Symptoms (no acute changes) Psychiatric: Reports: No Symptoms - Patient Data Vitals - Most Recent: Last Vital Signs Temp 37.2 C 12/19/17 08:00 Pulse 67 12/19/17 08:00 Resp 16 12/19/17 08:00 BP 169/58 H 12/19/17 08:00 Pulse Ox 97 12/19/17 08:00 Weight - Most Recent: 87.77 kg I&O - Last 24 Hours: Intake & Output 12/19/17 12/19/17 12/19/17 06:59 14:59 22:59 Intake Total 1440 Balance 1440 Lab Results Last 24 Hours: Laboratory Results - last 24 hr 12/18/17 12/19/17 12/19/17 Range/Units 21:54 07:40 11:51 POC Glucose 135 H 104 144 H (65-110) mg/dl 12/19/17 Range/Units 16:33 POC Glucose 118 H (65-110) mg/dl Med Orders - Current: Current Medications Acetaminophen (Tylenol) 650 mg PO Q4H PRN PRN Reason: analgesia/fever Last Admin: 12/18/17 21:50 Dose: 650 mg Aspirin (Halfprin) 81 mg PO DAILY [facility] Last Admin: 12/19/17 07:57 Dose: 81 mg Atorvastatin Calcium (Lipitor) 20 mg PO QPM [facility] Last Admin: 12/18/17 17:06 Dose: 20 mg Benzonatate (Tessalon Perles) 100 mg PO BID [facility] Last Admin: 12/19/17 07:57 Dose: 100 mg Bisacodyl (Dulcolax) 10 mg RECTAL DAILY PRN PRN Reason: Constipation Calcium Carbonate/Glycine (Tums) 500 mg PO DAILY [facility] Last Admin: 12/19/17 07:57 Dose: 500 mg Carvedilol (Coreg) 3.125 mg PO BID [facility] Last Admin: 12/19/17 07:59 Dose: 3.125 mg Cholecalciferol (Vitamin D3) 2,000 units PO DAILY [facility] Last Admin: 12/19/17 07:58 Dose: 2,000 units Citalopram Hydrobromide (Celexa) 20 mg PO DAILY [facility] Last Admin: 12/19/17 07:57 Dose: 20 mg Cyclobenzaprine HCl (Flexeril) 10 mg PO BEDTIME PRN PRN Reason: Muscle Spasm Last Admin: 12/17/17 21:20 Dose: 10 mg Donepezil HCl (Aricept) 5 mg PO BEDTIME [facility] Last Admin: 12/18/17 19:59 Dose: 5 mg Ferrous Sulfate (Ferrous Sulfate) 325 mg PO DAILY [facility] Last Admin: 12/19/17 07:56 Dose: 325 mg Furosemide (Lasix) 20 mg PO DAILY [facility] Last Admin: 12/19/17 07:59 Dose: 20 mg Insulin Detemir (Levemir) 8 unit SUBCUT BEDTIME [facility] Last Admin: 12/18/17 19:58 Dose: 8 units Levothyroxine Sodium (Synthroid) 100 mcg PO ACBREAKFAST [facility] Last Admin: 12/19/17 07:56 Dose: 100 mcg Levothyroxine Sodium (Levothyroxine) 25 mcg PO ACBREAKFAST [facility] Last Admin: 12/19/17 07:57 Dose: 25 mcg Magnesium Hydroxide (Milk Of Magnesia) 30 ml PO BID PRN PRN Reason: Constipation Magnesium Oxide (Magnesium Oxide) 400 mg PO BID [facility] Last Admin: 12/19/17 07:57 Dose: 400 mg Metformin HCl (Glucophage) 500 mg PO BIDMEALS [facility] Last Admin: 12/19/17 07:58 Dose: 500 mg Nifedipine (Procardia Xl) 60 mg PO DAILY [facility] Last Admin: 12/19/17 07:59 Dose: 60 mg Mercaptopurine [ Mercaptopurine] 50 Mg 50 mg PO DAILY [facility] Last Admin: 12/19/17 08:00 Dose: 50 mg Pantoprazole Sodium (Protonix) 40 mg PO DAILY [facility] Last Admin: 12/19/17 07:57 Dose: 40 mg Temazepam (Restoril) 15 mg PO BEDTIME PRN PRN Reason: Insomnia Last Admin: 12/18/17 21:50 Dose: 15 mg Triamcinolone Acetonide (Triamcinolone Acetonide 0.1% Crm) 0 gm TOP BID PRN PRN Reason: affected skin areas Trospium (Sanctura) 20 mg PO DAILY [facility] Last Admin: 12/19/17 07:57 Dose: 20 mg Discontinued Medications Insulin Human Regular (Humulin R) 0 unit SUBCUT BIDAC [facility] PRN Reason: Protocol Last Admin: 12/13/17 18:08 Dose: Not Given Levothyroxine Sodium (Synthroid) 100 mcg PO ACBREAKFAST [facility] Levothyroxine Sodium (Levothyroxine) 25 mcg PO ACBREAKFAST [facility] Metformin HCl (Glucophage) 250 mg PO BIDMEALS [facility] Last Admin: 12/12/17 09:23 Dose: 250 mg Non-Formulary Medication (Solifenacin [Vesicare]) 10 mg PO DAILY [facility] Last Admin: 12/07/17 08:57 Dose: Not Given - Exam General: Alert, Oriented, Cooperative, No Acute Distress HEENT: Pupils Equal, Pupils Reactive, EOMI, Mucous Membr. Moist/[place] Neck: Supple Lungs: Clear to Auscultation, Normal Respiratory Effort Cardiovascular: Regular Rate, Regular Rhythm GI/Abdominal Exam: Normal Bowel Sounds, Soft, Non-Tender, No Distention (Female) Exam: Deferred Back Exam: Normal Inspection. No: CVA Tenderness (L), CVA Tenderness (R), Muscle Spasm, Paraspinal Tenderness, Vertebral Tenderness Extremities: Non-Tender, Normal Capillary Refill, Other (Equal strength bilaterally upper and lower extemities. Has some limitations due to generalized deconditioning. ) Peripheral Pulses: 2+: Radial (L), Radial (R) Skin: Warm, Dry, Intact Neurological: No New Focal Deficit Psy/Mental Status: Alert, Normal Affect, Normal Mood - Problem List & Annotations (1) Weakness SNOMED Code(s): 61127410 Code(s): R53.1 - WEAKNESS Status: Acute Priority: High Current Visit: Yes Annotation/Comment:: Patient continues to work with PT and OT with some observed improvement. There continues to be concerns as to safety at home and ability to perform ADLs/self care at current level of strength and mobility. (2) Multiple falls SNOMED Code(s): 634180428 Code(s): R29.6 - REPEATED FALLS Status: Acute Priority: Medium Current Visit: Yes Annotation/Comment:: No falls since when originally seen in ER last week. (3) GI bleed SNOMED Code(s): 60052415 Code(s): K92.2 - GASTROINTESTINAL HEMORRHAGE, UNSPECIFIED Status: Acute Priority: High Current Visit: No Qualifiers: GI bleed type/associated pathology: unspecified gastrointestinal hemorrhage type Qualified Code(s): K92.2 - Gastrointestinal hemorrhage, unspecified Annotation/Comment:: Negative endoscopy at [facility]. Continue to monitor. (4) Chronic anemia SNOMED Code(s): 198770820 Code(s): D64.9 - ANEMIA, UNSPECIFIED Status: Chronic Priority: Medium Current Visit: Yes Annotation/Comment:: Has been stable. Recheck Hgb tomorrow. (5) Depression SNOMED Code(s): 79474692 Code(s): F32.9 - MAJOR DEPRESSIVE DISORDER, SINGLE EPISODE, UNSPECIFIED Status: Chronic Priority: Low Current Visit: No Qualifiers: Depression Type: unspecified Qualified Code(s): F32.9 - Major depressive disorder, single episode, unspecified (6) CAD (coronary artery disease) SNOMED Code(s): 95106957 Code(s): I25.10 - ATHSCL HEART DISEASE OF [place] CORONARY ARTERY W/O ANG PCTRS Status: Chronic Priority: Low Current Visit: No Qualifiers: Coronary Disease-Associated Artery/Lesion type: unspecified vessel or lesion type (7) Diabetes SNOMED Code(s): 59288970 Code(s): E11.9 - TYPE 2 DIABETES MELLITUS WITHOUT COMPLICATIONS Status: Chronic Priority: Medium Current Visit: Yes Qualifiers: Diabetes mellitus type: type 2 Diabetes mellitus custodial insulin use: without ocean transportation intermediary use Chronic kidney disease stage: unspecified stage Annotation/Comment:: Significant improvement in both level and stability of blood sugars since admission. Placed on Metformin and single dose of evening Levemir as well as diabetic diet. Concern comes when patient is discharged home as far as compliance with appropriate food choices, calorie load, and taking insulin appropriately in order to avoid hypo/hyperglycemia. (8) Diverticulosis SNOMED Code(s): 20524245 Code(s): K57.90 - DVRTCLOS OF INTEST, PART UNSP, W/O PERF OR ABSCESS W/O BLEED Status: Chronic Priority: Low Current Visit: No (9) HTN (hypertension) SNOMED Code(s): 82353429 Code(s): I10 - ESSENTIAL (PRIMARY) HYPERTENSION Status: Chronic Priority : Low Current Visit: No Qualifiers: Hypertension type: essential hypertension Qualified Code(s): I10 - Essential (primary) hypertension Annotation/Comment:: Has been stable while on swing bed (10) Dyslipidemia SNOMED Code(s): 942368119 Code(s): E78.5 - HYPERLIPIDEMIA, UNSPECIFIED Status: Chronic Priority: Low Current Visit: No (11) Hypothyroid SNOMED Code(s): 00157203 Code(s): E03.9 - HYPOTHYROIDISM, UNSPECIFIED Status: Chronic Priority: Low Current Visit: Yes Annotation/Comment:: Elevated TSH noted during ER workup. (12) Skin lesion of hand SNOMED Code(s): 427933570 Code(s): L98.9 - DISORDER OF THE SKIN AND SUBCUTANEOUS TISSUE, UNSPECIFIED Status: Acute Priority: Low Current Visit: Yes Annotation/Comment:: Patient has had rapidly growing skin lesion on right hand. Consider removal while on SB and send to pathology. Consider Derm referral. - Problem List Review Problem List Initiated/Reviewed/Updated: Yes - Assessment Assessment:: Anemia s/p GI bleed. Has been stable. Chronic weakness/falls/deconditioning. - Plan Plan:: Continue PT and OT. Case management to help with custodial planning. Patient currently plans to be able to return to independent living.
[2017-12-19] MEDS: atorvaSTATin 40 MG Tab PO SCH (17:14)
[2017-12-19] MEDS: Donepezil 5 MG Tab PO SCH (19:12)
[2017-12-19] MEDS: Insulin Detemir 100 Units/ML 3 ML Pen SUBCUT SCH (19:12)
[2017-12-19] MEDS: Temazepam 15 MG Cap PO PRN (21:24)
[2017-12-19] MEDS: Acetaminophen 325 MG Tab PO PRN (21:24)
[2017-12-20] MEDS: Pantoprazole 40 MG Tab.CR PO SCH (08:50)
[2017-12-20] MEDS: Levothyroxine 100 MCG Tab PO SCH (08:50)
[2017-12-20] MEDS: Furosemide 20 MG Tab PO SCH (08:50)
[2017-12-20] MEDS: Cholecalciferol (Vitamin D3) 1,000 Unit Tab PO SCH (08:50)
[2017-12-20] MEDS: MERCAPTOPURINE 50 MG PO SCH (08:51)
[2017-12-20] MEDS: Trospium 20 MG Tab PO SCH (08:51)
[2017-12-20] MEDS: NIFEdipine 30 MG Tab.ER PO SCH (08:51)
[2017-12-20] MEDS: Aspirin 81 MG Tab.EC PO SCH (08:51)
[2017-12-20] MEDS: Levothyroxine 25 MCG Tab PO SCH (08:51)
[2017-12-20] MEDS: Magnesium Oxide 400 MG Tab PO SCH ×2 (08:51→17:26)
[2017-12-20] MEDS: Carvedilol 3.125 MG Tab PO SCH ×2 (08:51→17:27)
[2017-12-20] MEDS: Calcium Carbonate 500 MG Tab.Chew PO SCH (08:51)
[2017-12-20] MEDS: Citalopram 20 MG Tab PO SCH (08:51)
[2017-12-20] MEDS: Benzonatate 100 MG Cap PO SCH ×2 (08:51→17:27)
[2017-12-20] MEDS: Ferrous Sulfate 325 MG Tab PO SCH (08:51)
[2017-12-20] MEDS: metFORMIN 500 MG Tab PO SCH ×2 (08:52→17:27)
[2017-12-20] MEDS: atorvaSTATin 40 MG Tab PO SCH (17:26)
[2017-12-20] MEDS: Insulin Detemir 100 Units/ML 3 ML Pen SUBCUT SCH (19:34)
[2017-12-20] MEDS: Donepezil 5 MG Tab PO SCH (19:34)
[2017-12-20] MEDS: Acetaminophen 325 MG Tab PO PRN (21:49)
[2017-12-21] MEDS: MERCAPTOPURINE 50 MG PO SCH (08:29)
[2017-12-21] MEDS: Ferrous Sulfate 325 MG Tab PO SCH (08:30)
[2017-12-21] MEDS: Magnesium Oxide 400 MG Tab PO SCH ×2 (08:30→18:04)
[2017-12-21] MEDS: Levothyroxine 25 MCG Tab PO SCH (08:30)
[2017-12-21] MEDS: Cholecalciferol (Vitamin D3) 1,000 Unit Tab PO SCH (08:30)
[2017-12-21] MEDS: Levothyroxine 100 MCG Tab PO SCH (08:31)
[2017-12-21] MEDS: NIFEdipine 30 MG Tab.ER PO SCH (08:31)
[2017-12-21] MEDS: Pantoprazole 40 MG Tab.CR PO SCH (08:32)
[2017-12-21] MEDS: metFORMIN 500 MG Tab PO SCH ×2 (08:32→18:05)
[2017-12-21] MEDS: Citalopram 20 MG Tab PO SCH (08:32)
[2017-12-21] MEDS: Carvedilol 3.125 MG Tab PO SCH ×2 (08:33→18:05)
[2017-12-21] MEDS: Trospium 20 MG Tab PO SCH (08:33)
[2017-12-21] MEDS: Aspirin 81 MG Tab.EC PO SCH (08:33)
[2017-12-21] MEDS: Calcium Carbonate 500 MG Tab.Chew PO SCH (08:34)
[2017-12-21] MEDS: Benzonatate 100 MG Cap PO SCH ×2 (08:34→18:05)
[2017-12-21] MEDS: Furosemide 20 MG Tab PO SCH (08:34)
[2017-12-21] MEDS: atorvaSTATin 40 MG Tab PO SCH (18:04)
[2017-12-21] MEDS: Donepezil 5 MG Tab PO SCH (21:23)
[2017-12-21] MEDS: Acetaminophen 325 MG Tab PO PRN (21:23)
[2017-12-21] MEDS: Insulin Detemir 100 Units/ML 3 ML Pen SUBCUT SCH (21:25)
[2017-12-22] MEDS: NIFEdipine 30 MG Tab.ER PO SCH (09:07)
[2017-12-22] MEDS: MERCAPTOPURINE 50 MG PO SCH (09:07)
[2017-12-22] MEDS: Furosemide 20 MG Tab PO SCH (09:08)
[2017-12-22] MEDS: Trospium 20 MG Tab PO SCH (09:08)
[2017-12-22] MEDS: Ferrous Sulfate 325 MG Tab PO SCH (09:08)
[2017-12-22] MEDS: Aspirin 81 MG Tab.EC PO SCH (09:08)
[2017-12-22] MEDS: Carvedilol 3.125 MG Tab PO SCH ×2 (09:08→17:09)
[2017-12-22] MEDS: Cholecalciferol (Vitamin D3) 1,000 Unit Tab PO SCH (09:08)
[2017-12-22] MEDS: metFORMIN 500 MG Tab PO SCH ×2 (09:08→17:08)
[2017-12-22] MEDS: Benzonatate 100 MG Cap PO SCH ×2 (09:09→17:09)
[2017-12-22] MEDS: Citalopram 20 MG Tab PO SCH (09:09)
[2017-12-22] MEDS: Calcium Carbonate 500 MG Tab.Chew PO SCH (09:09)
[2017-12-22] MEDS: Levothyroxine 25 MCG Tab PO SCH (09:09)
[2017-12-22] MEDS: Pantoprazole 40 MG Tab.CR PO SCH (09:09)
[2017-12-22] MEDS: Magnesium Oxide 400 MG Tab PO SCH ×2 (09:09→17:09)
[2017-12-22] MEDS: Levothyroxine 100 MCG Tab PO SCH (09:09)
[2017-12-22] MEDS: atorvaSTATin 40 MG Tab PO SCH (17:09)
[2017-12-22] MEDS: Donepezil 5 MG Tab PO SCH (19:13)
[2017-12-22] MEDS: Insulin Detemir 100 Units/ML 3 ML Pen SUBCUT SCH (19:14)
[2017-12-22] MEDS: Acetaminophen 325 MG Tab PO PRN (21:27)
[2017-12-22] MEDS: Temazepam 15 MG Cap PO PRN (21:28)
[2017-12-23] MEDS: Calcium Carbonate 500 MG Tab.Chew PO SCH (08:58)
[2017-12-23] MEDS: NIFEdipine 30 MG Tab.ER PO SCH (08:58)
[2017-12-23] MEDS: Cholecalciferol (Vitamin D3) 1,000 Unit Tab PO SCH (08:58)
[2017-12-23] MEDS: Levothyroxine 25 MCG Tab PO SCH (08:58)
[2017-12-23] MEDS: Pantoprazole 40 MG Tab.CR PO SCH (08:58)
[2017-12-23] MEDS: Benzonatate 100 MG Cap PO SCH ×2 (08:58→18:02)
[2017-12-23] MEDS: Levothyroxine 100 MCG Tab PO SCH (08:58)
[2017-12-23] MEDS: Carvedilol 3.125 MG Tab PO SCH ×2 (08:58→18:04)
[2017-12-23] MEDS: Magnesium Oxide 400 MG Tab PO SCH ×2 (08:58→18:01)
[2017-12-23] MEDS: Aspirin 81 MG Tab.EC PO SCH (08:58)
[2017-12-23] MEDS: Citalopram 20 MG Tab PO SCH (08:59)
[2017-12-23] MEDS: metFORMIN 500 MG Tab PO SCH ×2 (08:59→18:02)
[2017-12-23] MEDS: MERCAPTOPURINE 50 MG PO SCH (08:59)
[2017-12-23] MEDS: Furosemide 20 MG Tab PO SCH (08:59)
[2017-12-23] MEDS: Ferrous Sulfate 325 MG Tab PO SCH (08:59)
[2017-12-23] MEDS: Trospium 20 MG Tab PO SCH (08:59)
[2017-12-23] MEDS ORDERED: cefTRIAXone 1 GM Vial IM SCH (15:00)
[2017-12-23] MEDS ORDERED: Nitrofurantoin Monohydrate/Macrocrystalline 100 MG Cap PO SCH (18:00)
[2017-12-23] MEDS: atorvaSTATin 40 MG Tab PO SCH (18:01)
[2017-12-23] MEDS: Donepezil 5 MG Tab PO SCH (19:18)
[2017-12-23] MEDS: Insulin Detemir 100 Units/ML 3 ML Pen SUBCUT SCH (19:18)
[2017-12-23] MEDS: Temazepam 15 MG Cap PO PRN (22:08)
[2017-12-23] MEDS: Acetaminophen 325 MG Tab PO PRN (22:08)
[2017-12-24] MEDS: Benzonatate 100 MG Cap PO SCH (08:06)
[2017-12-24] MEDS: Furosemide 20 MG Tab PO SCH (08:06)
[2017-12-24] MEDS: Calcium Carbonate 500 MG Tab.Chew PO SCH (08:06)
[2017-12-24] MEDS: Levothyroxine 25 MCG Tab PO SCH (08:06)
[2017-12-24] MEDS: metFORMIN 500 MG Tab PO SCH (08:06)
[2017-12-24] MEDS: Aspirin 81 MG Tab.EC PO SCH (08:06)
[2017-12-24] MEDS: Magnesium Oxide 400 MG Tab PO SCH (08:06)
[2017-12-24] MEDS: Citalopram 20 MG Tab PO SCH (08:06)
[2017-12-24] MEDS: NIFEdipine 30 MG Tab.ER PO SCH (08:06)
[2017-12-24] MEDS: Pantoprazole 40 MG Tab.CR PO SCH (08:06)
[2017-12-24] MEDS: Trospium 20 MG Tab PO SCH (08:07)
[2017-12-24] MEDS: Carvedilol 3.125 MG Tab PO SCH (08:07)
[2017-12-24] MEDS: Levothyroxine 100 MCG Tab PO SCH (08:07)
[2017-12-24] MEDS: Ferrous Sulfate 325 MG Tab PO SCH (08:07)
[2017-12-24] MEDS: Cholecalciferol (Vitamin D3) 1,000 Unit Tab PO SCH (08:07)
[2017-12-24] MEDS: MERCAPTOPURINE 50 MG PO SCH (08:07)
--- NOTE | 2017-12-24 08:36 | PN ---
PATIENT NAME: ANTONIO BOSE MEDICAL RECORD NUMBER: : [id number] DATE: 12/23/2017 This 77-year-old female is hospitalized. Surgical consultation was requested today to evaluate skin lesions which have developed on her right hand and right leg. She says that these have developed rather rapidly over the course of a few months. On the dorsal aspect of the radial side of her right hand, the patient has a 1 cm raised circular skin lesion with slight central ulceration. On the medial aspect of her right lower leg, she has a lesion which is only slightly raised, also approximately 1 cm in size and scaly, but irregular in shape. Both these skin lesions are somewhat worrisome for the possibility of skin malignancy and I advised that these be excised and submitted for pathology. The procedure was discussed with the patient and she agreed to have this performed. This outpatient procedure can be scheduled under local anesthesia in the outpatient clinic. The patient said that she would agree to this, and arrangements will be made for her to see me in the clinic when her situation allows and consideration for removing these lesions at that time will be given.
[2017-12-24] MEDS ORDERED: cefTRIAXone 1 GM Vial IM ONE (10:00)
--- NOTE | 2017-12-24 10:00 | PCM.DCSUM1 ---
Discharge Summary - Hospital Course Brief History: Patient admitted to Swing Bed for weakness/anemia s/p GI bleed. - Discharge Data Discharge Date: 12/24/17 Discharge Disposition: Home, Self-Care 01 Condition: Good - Discharge Diagnosis/Problem(s) (1) Weakness SNOMED Code(s): 29546144 ICD Code: R53.1 - WEAKNESS Status: Acute Priority: High Current Visit: Yes Problem Details: Improved. Will have Home Health and in-home PT arranged for continued assistance after discharge. (2) Multiple falls SNOMED Code(s): 239393596 ICD Code: R29.6 - REPEATED FALLS Status: Acute Priority: Medium Current Visit: Yes Problem Details: No falls since when originally seen in ER last week. (3) GI bleed SNOMED Code(s): 12295913 ICD Code: K92.2 - GASTROINTESTINAL HEMORRHAGE, UNSPECIFIED Status: Acute Priority: High Current Visit: No Problem Details: Has been stable. Qualifiers: GI bleed type/associated pathology: unspecified gastrointestinal hemorrhage type Qualified Code(s): K92.2 - Gastrointestinal hemorrhage, unspecified (4) Chronic anemia SNOMED Code(s): 612676348 ICD Code: D64.9 - ANEMIA, UNSPECIFIED Status: Chronic Priority: Medium Current Visit: Yes Problem Details: Improving. (5) Depression SNOMED Code(s): 31071166 ICD Code: F32.9 - MAJOR DEPRESSIVE DISORDER, SINGLE EPISODE, UNSPECIFIED Status: Chronic Priority: Low Current Visit: No Problem Details: Stable Qualifiers: Depression Type: unspecified Qualified Code(s): F32.9 - Major depressive disorder, single episode, unspecified (6) CAD (coronary artery disease) SNOMED Code(s): 91441605 ICD Code: I25.10 - ATHSCL HEART DISEASE OF [place] CORONARY ARTERY W/O ANG PCTRS Status: Chronic Priority: Low Current Visit: No Problem Details: Currently stable Qualifiers: Coronary Disease-Associated Artery/Lesion type: unspecified vessel or lesion type (7) Diabetes SNOMED Code(s): 46101895 ICD Code: E11.9 - TYPE 2 DIABETES MELLITUS WITHOUT COMPLICATIONS Status: Chronic Priority: Medium Current Visit: Yes Problem Details: Significant improvement in both level and stability of blood sugars since admission with scheduled diabetic diet. Home Health will be checking compliance with appropriate food choices, calorie load, and blood sugar patterns. Will have patient follow up next week with primary provider to review sugars and review meds as needed. She will be placed on Metformin medication regimen as she does not want to start insulin. Discussed avoiding excess carb intake and dietary changes prior to discharge. Qualifiers: Diabetes mellitus type: type 2 Diabetes mellitus [facility] insulin use: without local company intermodal truck driver use Chronic kidney disease stage: unspecified stage (8) Diverticulosis SNOMED Code(s): 63551457 ICD Code: K57.90 - DVRTCLOS OF INTEST, PART UNSP, W/O PERF OR ABSCESS W/O BLEED Status: Chronic Priority: Low Current Visit: No Qualifiers: Diverticulosis site: unspecified location (9) HTN (hypertension) SNOMED Code(s): 84560629 ICD Code: I10 - ESSENTIAL (PRIMARY) HYPERTENSION Status: Chronic Priority : Low Current Visit: No Problem Details: Has been stable while on swing bed Qualifiers: Hypertension type: essential hypertension Qualified Code(s): I10 - Essential (primary) hypertension (10) Dyslipidemia SNOMED Code(s): 710786773 ICD Code: E78.5 - HYPERLIPIDEMIA, UNSPECIFIED Status: Chronic Priority: Low Current Visit: No (11) Hypothyroid SNOMED Code(s): 74105154 ICD Code: E03.9 - HYPOTHYROIDISM, UNSPECIFIED Status: Chronic Priority: Low Current Visit: Yes Problem Details: Follow up with primary provider for monitoring and adjustments as needed. (12) Skin lesion of hand SNOMED Code(s): 978169909 ICD Code: L98.9 - DISORDER OF THE SKIN AND SUBCUTANEOUS TISSUE, UNSPECIFIED Status: Acute Priority: Low Current Visit: Yes Problem Details: Following up with for removal of lesions. - Patient Summary/Data Consults: Consultations 12/06/17 19:28 Consult to Occupational Therapy [OT Evaluation and Treatment] [CONS] Routine PT Evaluation and Treatment [CONS] Routine 12/13/17 09:02 Consult to Dietary [Consult to Life Underwriter] [CONS] Routine 12/23/17 08:00 Consult to Physician [CONS] Routine Hospital Course: Patient received PT/OT. Improvement of overall strength and ability to perform ADLs noted. Hgb improved. - Patient Instructions Diet: Diabetic Diet Activity: As Tolerated Other/Special Instructions: Follow up next week with primary provider. Review medication regimen and blood sugars. In home PT as well as Home Health with be arranged. - Discharge Plan Prescriptions/Med Rec: Cholecalciferol (Vitamin D3) [Vitamin D3] 2,000 units PO DAILY #60 tablet Levofloxacin [Levaquin] 250 mg PO DAILY 3 Days #3 tablet metFORMIN [Glucophage] 500 mg PO BIDMEALS #60 tablet Home Medications: Home Meds Aspirin [Lo-Dose Aspirin EC] 81 mg PO DAILY 11/27/17 [History] Calcium Carbonate [Calcium] 500 mg PO DAILY 11/27/17 [History] Citalopram [Citalopram HBr] 20 mg PO DAILY 11/27/17 [History] Cyclobenzaprine [Flexeril] 10 mg PO BEDTIME PRN 11/27/17 [History] Donepezil [Aricept] 5 mg PO BEDTIME 11/27/17 [History] Esomeprazole Magnesium 20 mg PO DAILY 11/27/17 [History] Furosemide 20 mg PO DAILY 11/27/17 [History] Levothyroxine 125 mcg PO DAILY 11/27/17 [History] Mercaptopurine 50 mg PO DAILY 11/27/17 [History] NIFEdipine [Procardia Xl] 60 mg PO DAILY 11/27/17 [History] Solifenacin [Vesicare] 10 mg PO DAILY 11/27/17 [History] Triamcinolone Acetonide [Triamcinolone Acetonide 0.1% Crm] 1 applic TOP BID PRN 11/27/17 [History] Vitamin D 500 units PO DAILY 11/27/17 [History] atorvaSTATin [Lipitor] 20 mg PO QPM 11/27/17 [History] Carvedilol [Coreg] 3.125 mg PO BID 12/06/17 [History] Ferrous Sulfate 325 mg PO DAILY 12/06/17 [History] Magnesium Oxide [Magnesium] 400 mg PO BID 12/06/17 [History] Cholecalciferol (Vitamin D3) [Vitamin D3] 2,000 units PO DAILY #60 tablet [Rx] Levofloxacin [Levaquin] 250 mg PO DAILY 3 Days #3 tablet 12/24/17 [Rx] metFORMIN [Glucophage] 500 mg PO BIDMEALS #60 tablet 12/24/17 [Rx] Patient Handouts: Insulin Detemir injection, Regular Insulin injection, Carbohydrate Counting for Diabetes Mellitus, Adult - Discharge Summary/Plan Comment DC Time >30 min.: No Discharge Summary/Plan Comment: Home PT and Home Health to be arranged. Follow up with clinic next weeks. - General Info Date of Service: 12/24/17 Admission Dx/Problem (Free Text: Admission Diagnosis/Problem Admission Diagnosis/Problem Weakness Functional Status: Reports: Pain Controlled, Tolerating Diet, Ambulating, Urinating. Denies: New Symptoms - Review of Systems General: Reports: No Symptoms (No acute changes) HEENT: Reports: No Symptoms (no acute changes. ) Pulmonary: Reports: No Symptoms (No acute changes) Cardiovascular: Reports: No Symptoms (No acute changes) Gastrointestinal: Reports: No Symptoms (No acute changes) Genitourinary: Reports: Incontinence Musculoskeletal: Reports: No Symptoms (No acute changes from baseline) Skin: Reports: No Symptoms (No acute changes) Psychiatric: Reports: No Symptoms - Patient Data Vitals - Most Recent: Last Vital Signs Temp 37.1 C 12/24/17 08:00 Pulse 76 12/24/17 08:00 Resp 17 12/24/17 08:00 BP 151/71 H 12/24/17 08:00 Pulse Ox 95 12/24/17 08:00 Weight - Most Recent: 87.77 kg Lab Results - Last 24 hrs: Laboratory Results - last 24 hr 12/23/17 12/24/17 Range/Units 16:55 08:03 POC Glucose 127 H 129 H (65-110) mg/dl Med Orders - Current: Current Medications Acetaminophen (Tylenol) 650 mg PO Q4H PRN PRN Reason: analgesia/fever Last Admin: 12/23/17 22:08 Dose: 650 mg Aspirin (Halfprin) 81 mg PO DAILY [facility] Last Admin: 12/24/17 08:06 Dose: 81 mg Atorvastatin Calcium (Lipitor) 20 mg PO QPM [facility] Last Admin: 12/23/17 18:01 Dose: 20 mg Benzonatate (Tessalon Perles) 100 mg PO BID [facility] Last Admin: 12/24/17 08:06 Dose: 100 mg Bisacodyl (Dulcolax) 10 mg RECTAL DAILY PRN PRN Reason: Constipation Calcium Carbonate/Glycine (Tums) 500 mg PO DAILY [facility] Last Admin: 12/24/17 08:06 Dose: 500 mg Carvedilol (Coreg) 3.125 mg PO BID [facility] Last Admin: 12/24/17 08:07 Dose: 3.125 mg Ceftriaxone Sodium (Rocephin) 1 gm IM ONETIME ONE Stop: 12/24/17 10:01 Cholecalciferol (Vitamin D3) 2,000 units PO DAILY [facility] Last Admin: 12/24/17 08:07 Dose: 2,000 units Citalopram Hydrobromide (Celexa) 20 mg PO DAILY [facility] Last Admin: 12/24/17 08:06 Dose: 20 mg Cyclobenzaprine HCl (Flexeril) 10 mg PO BEDTIME PRN PRN Reason: Muscle Spasm Last Admin: 12/17/17 21:20 Dose: 10 mg Donepezil HCl (Aricept) 5 mg PO BEDTIME [facility] Last Admin: 12/23/17 19:18 Dose: 5 mg Ferrous Sulfate (Ferrous Sulfate) 325 mg PO DAILY [facility] Last Admin: 12/24/17 08:07 Dose: 325 mg Furosemide (Lasix) 20 mg PO DAILY [facility] Last Admin: 12/24/17 08:06 Dose: 20 mg Insulin Detemir (Levemir) 8 unit SUBCUT BEDTIME [facility] Last Admin: 12/23/17 19:18 Dose: 8 units Levothyroxine Sodium (Synthroid) 100 mcg PO ACBREAKFAST [facility] Last Admin: 12/24/17 08:07 Dose: 100 mcg Levothyroxine Sodium (Levothyroxine) 25 mcg PO ACBREAKFAST [facility] Last Admin: 12/24/17 08:06 Dose: 25 mcg Lidocaine HCl (Xylocaine-Mpf 1%) 2.1 ml .XX ONETIME ONE Stop: 12/24/17 10:01 Magnesium Hydroxide (Milk Of Magnesia) 30 ml PO BID PRN PRN Reason: Constipation Magnesium Oxide (Magnesium Oxide) 400 mg PO BID [facility] Last Admin: 12/24/17 08:06 Dose: 400 mg Metformin HCl (Glucophage) 500 mg PO BIDMEALS [facility] Last Admin: 12/24/17 08:06 Dose: 500 mg Nifedipine (Procardia Xl) 60 mg PO DAILY [facility] Last Admin: 12/24/17 08:06 Dose: 60 mg Mercaptopurine [ Mercaptopurine] 50 Mg 50 mg PO DAILY [facility] Last Admin: 12/24/17 08:07 Dose: 50 mg Pantoprazole Sodium (Protonix) 40 mg PO DAILY [facility] Last Admin: 03/02/18 08:06 Dose: 40 mg Temazepam (Restoril) 15 mg PO BEDTIME PRN PRN Reason: Insomnia Last Admin: 12/23/17 22:08 Dose: 15 mg Triamcinolone Acetonide (Triamcinolone Acetonide 0.1% Crm) 0 gm TOP BID PRN PRN Reason: affected skin areas Trospium (Sanctura) 20 mg PO DAILY [facility] Last Admin: 12/24/17 08:07 Dose: 20 mg Discontinued Medications Ceftriaxone Sodium (Rocephin) 1 gm IM Q24H [facility] Stop: 12/27/17 15:01 Last Admin: 12/23/17 16:02 Dose: 1 gm Insulin Human Regular (Humulin R) 0 unit SUBCUT BIDAC RACHEL PRN Reason: Protocol Last Admin: 12/13/17 18:08 Dose: Not Given Levothyroxine Sodium (Synthroid) 100 mcg PO ACBREAKFAST [facility] Levothyroxine Sodium (Levothyroxine) 25 mcg PO ACBREAKFAST [facility] Lidocaine HCl (Xylocaine-Mpf 1%) 2.1 ml .XX Q24H [facility] Stop: 12/27/17 15:01 Last Admin: 12/23/17 16:05 Dose: 2.1 ml Metformin HCl (Glucophage) 250 mg PO BIDMEALS [facility] Last Admin: 12/12/17 09:23 Dose: 250 mg Non-Formulary Medication (Solifenacin [Vesicare]) 10 mg PO DAILY [facility] Last Admin: 12/07/17 08:57 Dose: Not Given - Exam General: Reports: Alert, Oriented, Cooperative, No Acute Distress HEENT: Reports: Pupils Equal, Pupils Reactive, EOMI, Mucous Membr. Moist/[place] Neck: Reports: Supple Lungs: Reports: Clear to Auscultation, Normal Respiratory Effort Cardiovascular: Reports: Regular Rate, Regular Rhythm GI/Abdominal Exam: Normal Bowel Sounds, Soft, Non-Tender (Female) Exam: Deferred Rectal (Female) Exam: Deferred Back Exam: Denies: CVA Tenderness (L), CVA Tenderness (R) Extremities: Normal Range of Motion (for patient), Non-Tender, Normal Capillary Refill Skin: Reports: Warm, Dry, Intact Neurological: Reports: No New Focal Deficit Psy/Mental Status: Reports: Alert, Normal Affect, Normal Mood *Q Meaningful Use (DIS) - VTE *Q VTE Criteria *Q: - Stroke *Q Stroke Criteria *Q: - AMI *Q AMI Criteria *Q:
== END 2017-12-24 10:45 | disposition home or self-care (01) | DRG 948 ==
LOC: LL.MS 11:44
PROVIDERS: ADMIT Emergency Medicine; ATTEND Emergency Medicine
DX: R53.1 Weakness (principal); I25.810 Atherosclerosis of coronary artery bypass graft(s) without angina pectoris; R29.6 Repeated falls; Z91.81 History of falling; L98.9 Disorder of the skin and subcutaneous tissue, unspecified; I10 Essential (primary) hypertension; E78.5 Hyperlipidemia, unspecified; J45.909 Unspecified asthma, uncomplicated; N39.3 Stress incontinence (female) (male); G89.29 Other chronic pain; M54.9 Dorsalgia, unspecified; E11.40 Type 2 diabetes mellitus with diabetic neuropathy, unspecified; Z86.73 Personal history of transient ischemic attack (TIA), and cerebral infarction without residual deficits; G40.909 Epilepsy, unspecified, not intractable, without status epilepticus; E03.9 Hypothyroidism, unspecified; D64.9 Anemia, unspecified; F32.9 Major depressive disorder, single episode, unspecified; L40.9 Psoriasis, unspecified; Z87.891 Personal history of nicotine dependence; Z79.82 Long term (current) use of aspirin; Z79.899 Other long term (current) drug therapy; Z88.0 Allergy status to penicillin; Z88.2 Allergy status to sulfonamides; Z88.6 Allergy status to analgesic agent
CPT/HCPCS: 36415; 80053; 81001; 82962; 83036; 85025; 87086; 87088; 87186; 97110-GO; 97110-GP; 97116-GP; 97162-GP; 97165-GO; 97530-GO; 97530-GP; 97535-GO; A9270-GY; J0696; J1815-GY